=== PATIENT | female | born 1980 | race Caucasian/White ===

== ENCOUNTER 2017-06-15 14:36 | Emergency (ER) | payer BC, OTHER ==
[2017-06-15] MEDS ORDERED: Sodium Chloride 0.9% 1,000 ML IV STA (16:06)
--- NOTE | 2017-06-15 16:26 | ED PDOC ---
HPI: Abdomen Time Seen by Provider: 06/15/17 15:44 Chief Complaint (Nursing): Abdominal Pain Chief Complaint (Provider): Abdominal Pain History Per: Patient History/Exam Limitations: no limitations Onset/Duration Of Symptoms: Days (x2-3) Current Symptoms Are (Timing): Still Present Additional Complaint(s): Dominique Woodard is a 36 year old female with previous medical history of gastritis, Angy's disease, thyroid disease, bipolar disorder and fibromyalgia who presents to the emergency department via EMS with a complaint of sudden onset of dizziness associated with nausea, vomiting, sweating, dehydration, tingling sensation of left arm, fatigue, left-sided back, shoulder , and leg pain and intermittent LUQ abdominal pain ongoing for 2-3 days. Denied any dysuria, urine frequency, or hematuria. Patient stated that she feels "out of it" and was recently given anti-nausea medication from her PCP. LMP: 06/12/17 PMD: Johnathan Smallwood MD Past Medical History Reviewed: Historical Data, Nursing Documentation, Vital Signs Vital Signs: Last Vital Signs Temp 98.1 F 06/15/17 15:23 Pulse 84 06/15/17 15:23 Resp 16 06/15/17 15:23 BP 132/89 06/15/17 15:23 Pulse Ox 99 06/15/17 20:15 - Medical History PMH: Anxiety, Back Problems (herniated discs), Bipolar Disorder, Angy's Syndrome, Fibromyalgia, Gastritis, Hyperthyroidism, Hypothyroidism, Kidney Stones, Migraine, Sleep Apnea Denies: HIV, Chronic Kidney Disease - Surgical History Surgical History: Cholecystectomy - Family History Family History: States: Unknown Family Hx (patient states she is adopted) - Social History Current smoker - smoking cessation education provided: No Alcohol: < 2 Drinks/Day Drugs: Denies - Home Medications Home Medications: Ambulatory Orders Medication Instructions Recorded Alprazolam [Xanax] 0.5 mg PO DAILY PRN 07/18/16 Hydrocortisone [Cortef] 5 mg PO TID 07/18/16 Lamotrigine [Lamictal] 100 mg PO HS 07/18/16 Levothyroxine [Synthroid] 1 tab PO DAILY 07/18/16 Omeprazole 1 cap PO DAILY 07/18/16 Oxycodone HCl [Roxicodone] 5 mg PO Q4 PRN 07/18/16 metFORMIN [glucOPHAGE] 500 mg PO BID 07/18/16 tiZANidine [Zanaflex] 4 mg PO TID PRN 07/18/16 Nitrofurantoin Macrocrystals 100 mg PO BID #14 cap 10/10/16 [Macrobid] Naloxegol Oxalate [Movantik] 25 mg PO DAILY #30 tablet 06/15/17 Polyethylene Glycol 3350 [Miralax] 1 packet PO DAILY #30 packet 06/15/17 - Allergies Allergies/Adverse Reactions: Allergies Allergy/AdvReac Type Severity Reaction Status Date / Time nut - unspecified Allergy RASH Verified 07/18/16 16:10 Review of Systems ROS Statement: Except As Marked, All Systems Reviewed And Found Negative Constitutional: Positive for: Sweats, Other (dehydration and fatigue) Gastrointestinal: Positive for: Nausea, Vomiting, Abdominal Pain (LLQ) Genitourinary Female: Negative for: Dysuria, Frequency, Hematuria Musculoskeletal: Positive for: Shoulder Pain (left), Back Pain (left sided), Leg Pain (left) Neurological: Positive for: Dizziness, Other (tingling of left arm) Physical Exam - Reviewed Nursing Documentation Reviewed: Yes Vital Signs Reviewed: Yes - Physical Exam Appears: Positive for: Well, Non-toxic, No Acute Distress Head Exam: Positive for: ATRAUMATIC, NORMAL INSPECTION, NORMOCEPHALIC Neck: Positive for: Normal, Painless ROM, Supple Cardiovascular/Chest: Positive for: Regular Rate, Rhythm Respiratory: Positive for: Normal Breath Sounds. Negative for: Crackles, Rales , Rhonchi, Wheezing Gastrointestinal/Abdominal: Positive for: Tenderness (LUQ) Back: Positive for: L CVA Tenderness. Negative for: Normal Inspection, R CVA Tenderness Extremity: Positive for: Normal ROM, Capillary Refill (mild 2+). 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 There is diffuse increased echogenicity of the liver parenchyma. No mass. No intrahepatic bile duct dilatation. GALLBLADDER: Surgically absent. COMMON BILE DUCT: Measures 4.4 mm. No stones. No dilatation. PANCREAS: Obscured by bowel gas. RIGHT KIDNEY: Measures 13.6 cm in length. Normal echogenicity. No calculus, mass, or hydronephrosis. AORTA: No aneurysmal dilatation. IVC: Unremarkable. OTHER FINDINGS: None . IMPRESSION: Limited examination due to patient body habitus and bowel gas. The pancreas is not visualized with Hepatic steatosis. Time: 1853 US lower extremities FINDINGS: COMMON FEMORAL VEIN: Right CFV: Unremarkable. Left CFV: Unremarkable. SUPERFICIAL FEMORAL VEIN: Right SFV: Unremarkable. Left SFV: Unremarkable. POPLITEAL VEIN: Right Popliteal: Unremarkable. Left Popliteal: Unremarkable. POSTERIOR TIBIAL VEIN: Right PTV: Unremarkable. Left PTV: Unremarkable. OTHER FINDINGS: None. IMPRESSION: No evidence of deep venous thrombosis. Time: 2004 CT ABD/Pelvis FINDINGS: Artifacts: Streak artifact degrades image quality. Lower thorax: Heart size is normal. There is minimal atelectasis and scarring at the lung bases. ABDOMEN: Liver: There is fatty infiltration of the liver. Gallbladder and bile ducts: Gallbladder is surgically absent. Common bile duct is unremarkable. Pancreas: Pancreas is mildly atrophic. Spleen: Spleen is unremarkable. There are accessory splenules in the left upper quadrant. Adrenals: unremarkable Kidneys and ureters: unremarkable Stomach and bowel: Stomach is partially distended. Rotation is normal. There is no obstruction. Terminal ileum is unremarkable. Visualized portion the appendix is unremarkable. There is fatty infiltration of the ileocecal valve.Colon is incompletely distended which limits evaluation. Appendix: See above. PELVIS: Bladder: Bladder is almost completely empty. Reproductive: Uterus and adnexal structures are unremarkable. ABDOMEN and PELVIS: Intraperitoneal space: There is no free air or free fluid. Bones/joints: There is minimal degenerative osseous change. Soft tissues: There is a small fat containing umbilical hernia. Vasculature: Vascular structures are unremarkable. Lymph nodes: There is no pathologic adenopathy. IMPRESSION: Prior cholecystectomy; fatty liver, no acute solid visceral or bowel abnormality. Scribe Attestation: Documented by Barbara Hoffmann, acting as a scribe for Ladi Levin MD. Provider Scribe Attestation: All medical record entries made by the Scribe were at my direction and personally dictated by me. I have reviewed the chart and agree that the record accurately reflects my personal performance of the history, physical exam, medical decision making, and the department course for this patient. I have also personally directed, reviewed, and agree with the discharge instructions and disposition. 8.15pm - labs, US, duplex and CT-scan all unrevealing. Patient has appointment for EDG in 1-2 weeks in preparation for bariatric surgery. In passing, patient mentions need for dietary help and admits to poor choice of food intake. She also feels in retrospect that part of her bowel problems may be due to the opioids which she takes regularly. She is open to probiotics (which she states she is unfamiliar with) and to OIC agents (which she states has not been prescribed). Disposition - Clinical Impression Clinical Impression: Abdominal pain - Patient ED Disposition Is Patient to be Admitted: No Doctor Will See Patient In The: Office Counseled Patient/Family Regarding: Diagnosis, Need For Followup, Rx Given - Disposition Referrals: Dheeraj Bain [Outside] Disposition: Routine/Home Disposition Time: 20:39 Condition: STABLE Prescriptions: Naloxegol Oxalate [Movantik] 25 mg PO DAILY #30 tablet Polyethylene Glycol 3350 [Miralax] 1 packet PO DAILY #30 packet Instructions: Acute Abdominal Pain (ED), High Fiber Diet (ED) Forms: Dheeraj Mata (Portuguese) - POA Present On Arrival: None
[2017-06-15] MEDS ORDERED: Iohexol 240 (50 ml) PO ONE (16:46)
[2017-06-15] MEDS ORDERED: Iohexol 240 (50 ml) ONE (16:49)
[2017-06-15 17:00] LABS: BASO # 0.1 K/uL (0.0-0.2); BASO % 0.8 % (0.0-2.0); EOS # 0.2 K/uL (0.0-0.7); EOS % 1.6 % (0.0-4.0); LYMPH # 2.5 K/uL (1.0-4.3); LYMPH % 26.6 % (20.0-40.0); MEAN CELL VOLUME 83.1 fl (81.0-99.0); MEAN CORPUSCULAR HEMOGLOBIN 26.5 pg (27.0-31.0); MEAN CORPUSCULAR HGB CONC 31.9 g/dL (33.0-37.0); MEAN PLATELET VOLUME 8.2 fl (7.2-11.7); MONO # 0.6 K/uL (0.0-0.8); MONO % 6.7 % (0.0-10.0); NEUT % 64.3 % (50.0-75.0); RED CELL DISTRIBUTION WIDTH 15.7 % (11.5-14.5); WHITE BLOOD COUNT 9.4 K/uL (4.8-10.8)
[2017-06-15 17:23] LABS: CHLORIDE 105 mmol/L (98-107); POTASSIUM 4.2 MMOL/L (3.6-5.0); SODIUM 140 mmol/l (132-148)
[2017-06-15 17:25] LABS: AST/SGOT 107 U/L (14-36); BILIRUBIN,TOTAL 0.5 mg/dl (0.2-1.3); CARBON DIOXIDE 26 mmol/L (22-30); GFR AFRICAN-AMERICAN > 60
[2017-06-15 17:26] LABS: ALB/GLOB RATIO 1.1 (1.0-2.1); ALKALINE PHOSPHATASE 84 U/L (38-126); ALT/SGPT 98 U/L (9-52); BLOOD UREA NITROGEN 13 mg/dl (7-17); CALCIUM 9.2 mg/dL (8.4-10.2); GLUCOSE,RANDOM 114 mg/dL (65-105); LIPASE 37 U/L (23-300); TOTAL PROTEIN 7.3 G/DL (6.3-8.2)
--- NOTE | 2017-06-15 18:40 | US ---
HISTORY: Left upper quadrant pain COMPARISON: CT abdomen and pelvis from 2015 TECHNIQUE: Grayscale imaging was performed. Examination is technically limited due to patient body habitus FINDINGS: LIVER: Measures 13.6 cm in length. There is diffuse increased echogenicity of the liver parenchyma. No mass. No intrahepatic bile duct dilatation. GALLBLADDER: Surgically absent. COMMON BILE DUCT: Measures 4.4 mm. No stones. No dilatation. PANCREAS: Obscured by bowel gas. RIGHT KIDNEY: Measures 13.6 cm in length. Normal echogenicity. No calculus, mass, or hydronephrosis. AORTA: No aneurysmal dilatation. IVC: Unremarkable. OTHER FINDINGS: None . IMPRESSION: Limited examination due to patient body habitus and bowel gas. The pancreas is not visualized with Hepatic steatosis.
--- NOTE | 2017-06-15 18:55 | US ---
PROCEDURE: Bilateral lower extremity venous duplex Doppler. HISTORY: calf pain COMPARISON: None available. TECHNIQUE: Bilateral common femoral, superficial femoral, popliteal and posterior tibial veins were evaluated. Flow was assessed with color Doppler, compressibility, assessment of phasic flow and augmentation response. FINDINGS: COMMON FEMORAL VEIN: Right CFV: Unremarkable. Left CFV: Unremarkable. SUPERFICIAL FEMORAL VEIN: Right SFV: Unremarkable. Left SFV: Unremarkable. POPLITEAL VEIN: Right Popliteal: Unremarkable. Left Popliteal: Unremarkable. POSTERIOR TIBIAL VEIN: Right PTV: Unremarkable. Left PTV: Unremarkable. OTHER FINDINGS: None. IMPRESSION: No evidence of deep venous thrombosis.
[2017-06-15] MEDS ORDERED: Sodium Chloride 0.9% 50 ML IV ONE (18:59)
[2017-06-15] MEDS ORDERED: Iohexol 300 100 ML IJ ONE (18:59)
[2017-06-15 19:18] LABS: RBC URINE 4 /hpf (0-3); URINE BACTERIA OCC (<OCC); URINE BILIRUBIN NEGATIVE (NEGATIVE); URINE BLOOD MODERATE (NEGATIVE); URINE COLOR YELLOW (YELLOW); URINE GLUCOSE (UA) NEG (Normal); URINE KETONE NEGATIVE (NEGATIVE); URINE LEUKOCYTE ESTERASE LARGE Leu/uL (Negative); URINE PROTEIN NEGATIVE (NEGATIVE); URINE UROBILINOGEN 0.2-1.0 mg/dL (0.2-1.0); WBC URINE 26 /hpf (0-5)
--- NOTE | 2017-06-15 20:05 | CT ---
EXAM: CT Abdomen and Pelvis With Intravenous Contrast CLINICAL HISTORY: 36 years old, female; Pain; Abdominal pain; Generalized; Prior surgery; Surgery date: 6+ months; Surgery type: Gb reomved; Additional info: Luq pain, nausea, dizziness, vomiting for 2-3 days. Sent phy doc. With request TECHNIQUE: Axial computed tomography images of the abdomen and pelvis with intravenous contrast. This CT exam was performed using one or more of the following dose reduction techniques: automated exposure control, adjustment of the mA and/or kV according to patient size, and/or use of iterative reconstruction technique. Coronal and sagittal reformatted images were created and reviewed. CONTRAST: 100 mL of [id number] administered intravenously. EXAM DATE/TIME: 06/15/2017 4:04 PM COMPARISON: CT - ABD PELVIS PO IV CONTRAST 07/18/2016 9:05:20 PM FINDINGS: Artifacts: Streak artifact degrades image quality. Lower thorax: Heart size is normal. There is minimal atelectasis and scarring at the lung bases. ABDOMEN: Liver: There is fatty infiltration of the liver. Gallbladder and bile ducts: Gallbladder is surgically absent. Common bile duct is unremarkable. Pancreas: Pancreas is mildly atrophic. Spleen: Spleen is unremarkable. There are accessory splenules in the left upper quadrant. Adrenals: unremarkable Kidneys and ureters: unremarkable Stomach and bowel: Stomach is partially distended. Rotation is normal. There is no obstruction. Terminal ileum is unremarkable. Visualized portion the appendix is unremarkable. There is fatty infiltration of the ileocecal valve.Colon is incompletely distended which limits evaluation. Appendix: See above. PELVIS: Bladder: Bladder is almost completely empty. Reproductive: Uterus and adnexal structures are unremarkable. ABDOMEN and PELVIS: Intraperitoneal space: There is no free air or free fluid. Bones/joints: There is minimal degenerative osseous change. Soft tissues: There is a small fat containing umbilical hernia. Vasculature: Vascular structures are unremarkable. Lymph nodes: There is no pathologic adenopathy. IMPRESSION: Prior cholecystectomy; fatty liver, no acute solid visceral or bowel abnormality Additional findings as described above.
[2017-06-15 20:52] VITALS: BP 146/85; PULSE 82; RESP 18; O2SAT 98
[2017-06-15 20:54] VITALS: TEMP 98.2
--- NOTE | 2017-06-16 10:28 | CARD ---
APPROVED REPORT EKG Measurement Heart [id number] MI [id number] <Conclusion> Normal sinus rhythm Normal ECG
== END 2017-06-15 20:55 | disposition home or self-care (01) ==
LOC: H.ER 14:36
DX: R10.9 Unspecified abdominal pain (principal); K50.90 Crohn's disease, unspecified, without complications; E03.9 Hypothyroidism, unspecified; E05.90 Thyrotoxicosis, unspecified without thyrotoxic crisis or storm; F31.9 Bipolar disorder, unspecified; F41.9 Anxiety disorder, unspecified; Z79.84 Long term (current) use of oral hypoglycemic drugs; Z90.49 Acquired absence of other specified parts of digestive tract
CPT/HCPCS: 74177; 76705; 80053; 81003; 81025; 83690; 85025; 87086; 87181; 93005; 93970; 96374; 99283; J2405; J7040; Q9966; Q9967

== ENCOUNTER 2017-08-21 23:05 | Emergency (ER) | payer BC ==
[2017-08-21 23:20] VITALS: BP 155/74; PULSE 86; RESP 18; TEMP 98.2; O2SAT 99
[2017-08-22] MEDS ORDERED: Iohexol 240 (50 ml) PO ONE (00:32)
[2017-08-22] MEDS ORDERED: Sodium Chloride 0.9% 1,000 ML IV STA (00:33)
--- NOTE | 2017-08-22 00:35 | ED PDOC ---
HPI: Abdomen Time Seen by Provider: 08/22/17 00:08 Chief Complaint (Nursing): Abdominal Pain Chief Complaint (Provider): abdominal pain History Per: Patient History/Exam Limitations: no limitations Onset/Duration Of Symptoms: Days (1 weeks) Current Symptoms Are (Timing): Still Present Location Of Pain/Discomfort: LUQ, LLQ Quality Of Discomfort: Stabbing, "Pain" Associated Symptoms: Constipation. denies: Fever, Chills, Nausea, Vomiting Additional History Per: Patient Additional Complaint(s): 36 y/o female history of fibromyalgia, bjorn's disease, hypothyroid, chronic back pain presents with left-sided abdominal pain x 1 week. Associated constipation, however patient notes that to be normal for her as she is on oxycodone daily. DEnies fever, chest pain, shortness of breath, palpitations, urinary symptoms. Past Medical History Reviewed: Historical Data, Nursing Documentation, Vital Signs Vital Signs: Last Vital Signs Temp 98.2 F 08/21/17 23:15 Pulse 86 08/21/17 23:15 Resp 18 08/21/17 23:15 BP 155/74 H 08/21/17 23:15 Pulse Ox 99 08/22/17 00:35 - Medical History PMH: Anxiety, Back Problems (herniated discs), Bipolar Disorder, [place]'s Syndrome, Fibromyalgia, Gastritis, Hyperthyroidism, Hypothyroidism, Kidney Stones, Migraine, Sleep Apnea Denies: HIV, Chronic Kidney Disease - Surgical History Surgical History: Cholecystectomy - Family History Family History: States: Unknown Family Hx (patient states she is adopted) - Home Medications Home Medications: Ambulatory Orders Medication Instructions Recorded Alprazolam [Xanax] 0.5 mg PO DAILY PRN 07/18/16 Hydrocortisone [Cortef] 5 mg PO TID 07/18/16 Lamotrigine [Lamictal] 100 mg PO HS 07/18/16 Levothyroxine [Synthroid] 1 tab PO DAILY 07/18/16 Omeprazole 1 cap PO DAILY 07/18/16 Oxycodone HCl [Roxicodone] 5 mg PO Q4 PRN 07/18/16 metFORMIN [glucOPHAGE] 500 mg PO BID 07/18/16 tiZANidine [Zanaflex] 4 mg PO TID PRN 07/18/16 Nitrofurantoin Macrocrystals 100 mg PO BID #14 cap 10/10/16 [Macrobid] Naloxegol Oxalate [Movantik] 25 mg PO DAILY #30 tablet 06/15/17 Polyethylene Glycol 3350 [Miralax] 1 packet PO DAILY #30 packet 06/15/17 Docusate [Colace] 100 mg PO BID PRN #30 cap 08/22/17 Esomeprazole Magnesium [Nexium] 40 mg PO DAILY #10 capsule. 08/22/17 Nitrofurantoin Macrocrystals 100 mg PO BID #14 cap 08/22/17 [Macrobid] - Allergies Allergies/Adverse Reactions: Allergies Allergy/AdvReac Type Severity Reaction Status Date / Time nut - unspecified Allergy RASH Verified 08/21/17 23:15 Review of Systems ROS Statement: Except As Marked, All Systems Reviewed And Found Negative Gastrointestinal: Positive for: Abdominal Pain Physical Exam - Reviewed Nursing Documentation Reviewed: Yes Vital Signs Reviewed: Yes - Physical Exam Appears: Positive for: Well, Non-toxic, No Acute Distress Head Exam: Positive for: ATRAUMATIC, NORMAL INSPECTION, NORMOCEPHALIC Skin: Positive for: Normal Color Eye Exam: Positive for: Normal appearance ENT: Positive for: Normal ENT Inspection Cardiovascular/Chest: Positive for: Regular Rate, Rhythm Respiratory: Positive for: Normal Breath Sounds Gastrointestinal/Abdominal: Positive for: Bowel Sounds, Soft, Tenderness (LUQ, LLQ) Back: Positive for: Normal Inspection Extremity: Positive for: Normal ROM Neurologic/Psych: Positive for: Alert, Oriented - Laboratory Results Result Diagrams: 08/22/17 00:43 08/22/17 00:43 - ECG O2 Sat by Pulse Oximetry: 99 - Progress ED Course And Treament: labs, urine, CT abd/pelvis, IV fluids, IV zofran, IV pepcid, IV toradol EXAM: CT Abdomen and Pelvis With Intravenous Contrast EXAM DATE/TIME: 08/22/2017 12:32 AM CLINICAL HISTORY: 36 years old, female; Pain; Abdominal pain; Localized; Left; Prior surgery; Surgery date: 6+ months; Surgery type: Choleycystectomy; Additional info: Left-sided abd pain TECHNIQUE: Axial computed tomography images of the abdomen and pelvis with intravenous contrast. All CT scans at this facility use one or more dose reduction techniques, viz.: automated exposure control; ma/kV adjustment per patient size (including targeted exams where dose is matched to indication; i.e. head); or iterative reconstruction technique. Coronal and sagittal reformatted images were created and reviewed. CONTRAST: 95 mL of [id number] administered intravenously. COMPARISON: Prior CT abdomen and pelvis of 06/15/2017 FINDINGS: LIMITATIONS: Artifact related to the patient's body habitus. LOWER THORAX: No infiltrate seen in the lung bases. ABDOMEN: LIVER: Fatty infiltration of the liver. Hepatomegaly, with the liver measuring 25 cm in length on the coronal images. GALLBLADDER AND BILE DUCTS: Cholecystectomy clips. PANCREAS: Pancreas appears low in density, most likely secondary to fatty replacement. No CT evidence of acute pancreatitis. SPLEEN: No acute abnormality of the spleen identified. ADRENALS: No acute abnormality of the adrenal glands identified. KIDNEYS AND URETERS: No acute abnormality of the kidneys identified. No evidence of significant hydrouereteronephrosis. STOMACH AND BOWEL: Cecum is midline in location, a normal variant. No evidence of cecal volvulus. Otherwise, no significant abnormality of the bowel is identified. No evidence of bowel obstruction. APPENDIX: Appendix is seen, and is within normal limits in appearance. PELVIS: BLADDER: No acute abnormality of the bladder identified. REPRODUCTIVE:No acute abnormality of the reproductive organs is seen. No acute abnormality of the uterus identified. No evidence of large adnexal masses. ABDOMEN and PELVIS: INTRAPERITONEAL SPACE: No evidence of free intraperitoneal air or fluid. BONES/JOINTS: No acute fractures or other acute bony abnormality noted. SOFT TISSUES: No acute abnormality of the visualized soft tissues is seen. VASCULATURE: No evidence of abdominal aortic aneurysm. No evidence of periaortic hemorrhage. LYMPH NODES: No evidence of diffuse lymphadenopathy. IMPRESSION: - No evidence of significant acute process. No definite cause for pain identified. - See above for remaining findings. Patient educated on findings, discharged with rx macrobid, nexium, colace. Advised fluids, high fiber diet. Follow up PMD/GI. REturn to ED for worsening/concerning symptoms Disposition - Clinical Impression Clinical Impression: UTI (urinary tract infection), Abdominal discomfort - Patient ED Disposition Is Patient to be Admitted: No Counseled Patient/Family Regarding: Studies Performed, Diagnosis, Need For Followup, Rx Given - Disposition Referrals: Rolando Valerio MD, PhD [Staff Provider] - Disposition: Routine/Home Disposition Time: 05:06 Condition: IMPROVED Prescriptions: Docusate [Colace] 100 mg PO BID PRN #30 cap PRN Reason: Constipation Esomeprazole Magnesium [Nexium] 40 mg PO DAILY #10 capsule. Nitrofurantoin Macrocrystals [Macrobid] 100 mg PO BID #14 cap Instructions: Abdominal Pain (ED), Urinary Tract Infection in Women (ED)
[2017-08-22 00:46] LABS: BASO # 0.1 K/uL (0.0-0.2); BASO % 1.1 % (0.0-2.0); EOS # 0.3 K/uL (0.0-0.7); EOS % 2.7 % (0.0-4.0); HEMATOCRIT 36.8 % (34.0-47.0); LYMPH # 2.8 K/uL (1.0-4.3); MEAN CELL VOLUME 82.9 fl (81.0-99.0); MEAN CORPUSCULAR HEMOGLOBIN 26.6 pg (27.0-31.0); MEAN CORPUSCULAR HGB CONC 32.1 g/dL (33.0-37.0); MEAN PLATELET VOLUME 7.9 fl (7.2-11.7); MONO # 0.8 K/uL (0.0-0.8); MONO % 7.3 % (0.0-10.0); NEUT # 6.8 K/uL (1.8-7.0); NEUT % 62.9 % (50.0-75.0); NRBC % 0.1 % (0.0-0.0); RED CELL DISTRIBUTION WIDTH 15.6 % (11.5-14.5); WHITE BLOOD COUNT 10.8 K/uL (4.8-10.8)
[2017-08-22 00:56] LABS: ALB/GLOB RATIO 1.1 (1.0-2.1); ALKALINE PHOSPHATASE 68 U/L (38-126); ALT/SGPT 102 U/L (9-52); AST/SGOT 96 U/L (14-36); BILIRUBIN,TOTAL 0.4 mg/dl (0.2-1.3); BLOOD UREA NITROGEN 9 mg/dl (7-17); CALCIUM 8.8 mg/dL (8.4-10.2); CARBON DIOXIDE 27 mmol/L (22-30); CHLORIDE 103 mmol/L (98-107); GFR AFRICAN-AMERICAN > 60; GLUCOSE,RANDOM 125 mg/dL (65-105); LIPASE 41 U/L (23-300); POTASSIUM 4.6 MMOL/L (3.6-5.0); SODIUM 141 mmol/l (132-148); TOTAL PROTEIN 7.2 G/DL (6.3-8.2)
[2017-08-22] MEDS ORDERED: Iohexol 240 (50 ml) ONE (01:21)
[2017-08-22 01:48] LABS: RBC URINE 2 /hpf (0-3); URINE BACTERIA OCC (<OCC); URINE BILIRUBIN NEGATIVE (NEGATIVE); URINE BLOOD NEGATIVE (NEGATIVE); URINE COLOR YELLOW (YELLOW); URINE GLUCOSE (UA) NEG (Normal); URINE KETONE NEGATIVE (NEGATIVE); URINE LEUKOCYTE ESTERASE MOD Leu/uL (Negative); URINE PROTEIN NEGATIVE (NEGATIVE); URINE UROBILINOGEN 0.2-1.0 mg/dL (0.2-1.0); WBC URINE 13 /hpf (0-5)
[2017-08-22] MEDS ORDERED: Iohexol 300 100 ML IJ ONE (03:38)
[2017-08-22] MEDS ORDERED: Sodium Chloride 0.9% 50 ML IV ONE (03:38)
--- NOTE | 2017-08-22 04:42 | CT ---
EXAM: CT Abdomen and Pelvis With Intravenous Contrast EXAM DATE/TIME: 08/22/2017 12:32 AM CLINICAL HISTORY: 36 years old, female; Pain; Abdominal pain; Localized; Left; Prior surgery; Surgery date: 6+ months; Surgery type: Choleycystectomy; Additional info: Left-sided abd pain TECHNIQUE: Axial computed tomography images of the abdomen and pelvis with intravenous contrast. All CT scans at this facility use one or more dose reduction techniques, viz.: automated exposure control; ma/kV adjustment per patient size (including targeted exams where dose is matched to indication; i.e. head); or iterative reconstruction technique. Coronal and sagittal reformatted images were created and reviewed. CONTRAST: 95 mL of [id number] administered intravenously. COMPARISON: Prior CT abdomen and pelvis of 06/15/2017 FINDINGS: LIMITATIONS: Artifact related to the patient's body habitus. LOWER THORAX: No infiltrate seen in the lung bases. ABDOMEN: LIVER: Fatty infiltration of the liver. Hepatomegaly, with the liver measuring 25 cm in length on the coronal images. GALLBLADDER AND BILE DUCTS: Cholecystectomy clips. PANCREAS: Pancreas appears low in density, most likely secondary to fatty replacement. No CT evidence of acute pancreatitis. SPLEEN: No acute abnormality of the spleen identified. ADRENALS: No acute abnormality of the adrenal glands identified. KIDNEYS AND URETERS: No acute abnormality of the kidneys identified. No evidence of significant hydrouereteronephrosis. STOMACH AND BOWEL: Cecum is midline in location, a normal variant. No evidence of cecal volvulus. Otherwise, no significant abnormality of the bowel is identified. No evidence of bowel obstruction. APPENDIX: Appendix is seen, and is within normal limits in appearance. PELVIS: BLADDER: No acute abnormality of the bladder identified. REPRODUCTIVE:No acute abnormality of the reproductive organs is seen. No acute abnormality of the uterus identified. No evidence of large adnexal masses. ABDOMEN and PELVIS: INTRAPERITONEAL SPACE: No evidence of free intraperitoneal air or fluid. BONES/JOINTS: No acute fractures or other acute bony abnormality noted. SOFT TISSUES: No acute abnormality of the visualized soft tissues is seen. VASCULATURE: No evidence of abdominal aortic aneurysm. No evidence of periaortic hemorrhage. LYMPH NODES: No evidence of diffuse lymphadenopathy. IMPRESSION: - No evidence of significant acute process. No definite cause for pain identified. - See above for remaining findings.
== END 2017-08-22 05:37 | disposition home or self-care (01) ==
LOC: H.ER 23:05
DX: N39.0 Urinary tract infection, site not specified (principal); R10.9 Unspecified abdominal pain
CPT/HCPCS: 74177; 80053; 81003; 81025; 83690; 85025; 96361; 96374; 96375; 99281; J1885; J2405; J7040; Q9966; Q9967

== ENCOUNTER 2017-08-22 23:19 | Emergency (ER) | payer BC ==
[2017-08-22 23:28] VITALS: BP 143/81; PULSE 77; RESP 16; TEMP 98; O2SAT 96
[2017-08-22] MEDS ORDERED: Sodium Chloride 0.9% 1,000 ML IV STA (23:37)
[2017-08-23 00:09] LABS: BASO # 0.1 K/uL (0.0-0.2); BASO % 0.7 % (0.0-2.0); EOS # 0.2 K/uL (0.0-0.7); EOS % 2.1 % (0.0-4.0); HEMATOCRIT 37.1 % (34.0-47.0); LYMPH # 2.1 K/uL (1.0-4.3); LYMPH % 21.2 % (20.0-40.0); MEAN CELL VOLUME 82.6 fl (81.0-99.0); MEAN CORPUSCULAR HEMOGLOBIN 26.4 pg (27.0-31.0); MEAN CORPUSCULAR HGB CONC 31.9 g/dL (33.0-37.0); MEAN PLATELET VOLUME 8.1 fl (7.2-11.7); MONO # 0.6 K/uL (0.0-0.8); RED CELL DISTRIBUTION WIDTH 15.6 % (11.5-14.5); WHITE BLOOD COUNT 9.9 K/uL (4.8-10.8)
--- NOTE | 2017-08-23 00:12 | ED PDOC ---
HPI: Abdomen Time Seen by Provider: 08/22/17 23:30 Chief Complaint (Nursing): Abdominal Pain Chief Complaint (Provider): Abdominal pain, headache History Per: Patient History/Exam Limitations: no limitations Onset/Duration Of Symptoms: Mins Outside of [place] travel?: No Current Symptoms Are (Timing): Still Present Context: Food Location Of Pain/Discomfort: Diffuse Associated Symptoms: Vomiting, Diarrhea Exacerbating Factors: Food Additional History Per: Patient Additional Complaint(s): The patient is a 36yo female, presents to the ED for evaluation of abdominal pain with associated nausea, vomiting and diarrhea. The patient was seen in this facility yesterday for similar symptoms and was discharged home after patient reported feeling better. She states today, she went to a [employer] show and had pizza after which she had 3 episodes of watery diarrhea and 2 episodes of non-bloody, non-bilious vomiting. She reports she has only been able to drink water and feels as if the pizza caused her symptoms. She also reports an associated "pounding" headache. She denies any other medical complaints. Abnormal Vaginal Bleeding: No Past Medical History Reviewed: Historical Data, Nursing Documentation, Vital Signs Vital Signs: Last Vital Signs Temp 98 F 08/22/17 23:24 Pulse 77 08/22/17 23:24 Resp 16 08/22/17 23:24 BP 143/81 08/22/17 23:24 Pulse Ox 96 08/23/17 01:57 - Medical History PMH: Anxiety, Back Problems (herniated discs), Bipolar Disorder, [place]'s Syndrome, Fibromyalgia, Gastritis, Hyperthyroidism, Hypothyroidism, Kidney Stones, Migraine, Sleep Apnea Denies: HIV, Chronic Kidney Disease - Surgical History Surgical History: Cholecystectomy - Family History Family History: States: Unknown Family Hx (patient states she is adopted) - Home Medications Home Medications: Ambulatory Orders Medication Instructions Recorded Alprazolam [Xanax] 0.5 mg PO DAILY PRN 07/18/16 Hydrocortisone [Cortef] 5 mg PO TID 07/18/16 Lamotrigine [Lamictal] 100 mg PO HS 07/18/16 Levothyroxine [Synthroid] 1 tab PO DAILY 07/18/16 Omeprazole 1 cap PO DAILY 07/18/16 Oxycodone HCl [Roxicodone] 5 mg PO Q4 PRN 08/30/16 metFORMIN [glucOPHAGE] 500 mg PO BID 07/18/16 tiZANidine [Zanaflex] 4 mg PO TID PRN 07/18/16 Nitrofurantoin Macrocrystals 100 mg PO BID #14 cap 10/10/16 [Macrobid] Naloxegol Oxalate [Movantik] 25 mg PO DAILY #30 tablet 06/15/17 Polyethylene Glycol 3350 [Miralax] 1 packet PO DAILY #30 packet 06/15/17 Docusate [Colace] 100 mg PO BID PRN #30 cap 08/22/17 Esomeprazole Magnesium [Nexium] 40 mg PO DAILY #10 capsule. 08/22/17 Nitrofurantoin Macrocrystals 100 mg PO BID #14 cap 08/22/17 [Macrobid] Ondansetron [Zofran] 4 mg PO Q8H #12 tab 08/23/17 - Allergies Allergies/Adverse Reactions: Allergies Allergy/AdvReac Type Severity Reaction Status Date / Time nut - unspecified Allergy RASH Verified 08/21/17 23:15 Review of Systems ROS Statement: Except As Marked, All Systems Reviewed And Found Negative Gastrointestinal: Positive for: Nausea, Vomiting, Abdominal Pain, Diarrhea Neurological: Positive for: Headache Physical Exam - Reviewed Nursing Documentation Reviewed: Yes Vital Signs Reviewed: Yes - Physical Exam Appears: Positive for: Non-toxic (obese), No Acute Distress Head Exam: Positive for: ATRAUMATIC, NORMAL INSPECTION, NORMOCEPHALIC Skin: Positive for: Warm, Dry Neck: Positive for: Supple Cardiovascular/Chest: Positive for: Regular Rate, Rhythm Respiratory: Positive for: Normal Breath Sounds. Negative for: Wheezing, Respiratory Distress Gastrointestinal/Abdominal: Positive for: Soft, Tenderness (diffuse), Other ( patient actively retching). Negative for: Guarding, Rebound Neurologic/Psych: Positive for: Alert, Oriented. Negative for: Motor/Sensory Deficits - Laboratory Results Result Diagrams: 08/23/17 00:07 08/23/17 00:07 - ECG O2 Sat by Pulse Oximetry: 96 (RA) Pulse Ox Interpretation: Normal Medical Decision Making Medical Decision Making: Time: 2336 Impression: Gastroenteritis Plan: -- Labs -- Toradol 30 mg IVP -- Reglan 10 mg Ivp -- IV Fluids Reassess Time: 0127 Patient reports she feels much better, and is able to tolerate PO intake. Patient informed to follow up with her PCP in 1-2 days and informed to return to ED if symptoms worsen or new symptoms arise. Patient stable for discharge home. Scribe Attestation: Documented by Ramonita Ibarra acting as a scribe for Hipolito Medina MD. Provider Attestation: All medical record entries made by the Scribe were at my direction and personally dictated by me. I have reviewed the chart and agree that the record accurately reflects my personal performance of the history, physical exam, medical decision making, and the department course for this patient. I have also personally directed, reviewed, and agree with the discharge instructions and disposition. Disposition - Clinical Impression Clinical Impression: Gastroenteritis - Patient ED Disposition Is Patient to be Admitted: No Counseled Patient/Family Regarding: Diagnosis, Need For Followup - Disposition Referrals: [facility] [Outside] Disposition: Routine/Home Disposition Time: 01:27 Condition: STABLE Prescriptions: Ondansetron [Zofran] 4 mg PO Q8H #12 tab Instructions: Dehydration (DC), Gastroenteritis (ED) Forms: Outline ([place]an)
[2017-08-23 00:16] LABS: RBC URINE 4 /hpf (0-3); URINE BACTERIA OCC (<OCC); URINE BILIRUBIN NEGATIVE (NEGATIVE); URINE BLOOD MODERATE (NEGATIVE); URINE COLOR STRAW (YELLOW); URINE GLUCOSE (UA) NEG (Normal); URINE KETONE NEGATIVE (NEGATIVE); URINE LEUKOCYTE ESTERASE SMALL Leu/uL (Negative); URINE PROTEIN NEGATIVE (NEGATIVE); URINE UROBILINOGEN 0.2-1.0 mg/dL (0.2-1.0); WBC URINE 4 /hpf (0-5)
[2017-08-23 00:19] LABS: ALB/GLOB RATIO 1.1 (1.0-2.1); ALKALINE PHOSPHATASE 81 U/L (38-126); ALT/SGPT 106 U/L (9-52); AST/SGOT 91 U/L (14-36); BILIRUBIN,TOTAL 0.5 mg/dl (0.2-1.3); BLOOD UREA NITROGEN 10 mg/dl (7-17); CALCIUM 9.6 mg/dL (8.4-10.2); CARBON DIOXIDE 25 mmol/L (22-30); CHLORIDE 102 mmol/L (98-107); GFR AFRICAN-AMERICAN > 60; GLUCOSE,RANDOM 181 mg/dL (65-105); LIPASE 48 U/L (23-300); POTASSIUM 3.7 MMOL/L (3.6-5.0); SODIUM 142 mmol/l (132-148); TOTAL PROTEIN 7.2 G/DL (6.3-8.2)
== END 2017-08-23 01:54 | disposition home or self-care (01) ==
LOC: H.ER 23:19
DX: K52.9 Noninfective gastroenteritis and colitis, unspecified (principal); R11.10 Vomiting, unspecified
CPT/HCPCS: 80053; 81003; 81025; 83690; 85025; 96374; 96375; 99283; J1885; J2765; J7040

== ENCOUNTER 2017-09-05 12:08 | Emergency (ER) | payer BC ==
[2017-09-05 12:13] VITALS: BP 147/75; PULSE 88; RESP 16; TEMP 98.2; O2SAT 96
[2017-09-05] MEDS ORDERED: Sodium Chloride 0.9% 1,000 ML IV STA (12:57)
--- NOTE | 2017-09-05 13:02 | ED PDOC ---
HPI: Abdomen Time Seen by Provider: 09/05/17 12:27 Chief Complaint (Nursing): Abdominal Pain Chief Complaint (Provider): Abdominal pain History Per: Patient Additional Complaint(s): Nausea and dizziness since this morning. Intermittent right abdominal pain for a >1 week, worse this morning. Patient has endoscopy and colonoscopy scheduled tomorrow. Past Medical History Vital Signs: Last Vital Signs Temp 98.2 F 09/05/17 12:11 Pulse 88 09/05/17 12:11 Resp 16 09/05/17 12:11 BP 147/75 09/05/17 12:11 Pulse Ox 96 09/05/17 13:02 - Medical History PMH: Anxiety, Back Problems (herniated discs), Bipolar Disorder, Angy's Syndrome, Fibromyalgia, Gastritis, Hyperthyroidism, Hypothyroidism, Kidney Stones, Migraine, Sleep Apnea Denies: HIV, Chronic Kidney Disease - Surgical History Surgical History: Cholecystectomy - Family History Family History: States: Unknown Family Hx (patient states she is adopted) - Home Medications Home Medications: Ambulatory Orders Medication Instructions Recorded Alprazolam [Xanax] 0.5 mg PO DAILY PRN 07/18/16 Hydrocortisone [Cortef] 5 mg PO TID 07/18/16 Lamotrigine [Lamictal] 100 mg PO HS 07/18/16 Levothyroxine [Synthroid] 1 tab PO DAILY 07/18/16 Omeprazole 1 cap PO DAILY 07/18/16 Oxycodone HCl [Roxicodone] 5 mg PO Q4 PRN 07/18/16 metFORMIN [glucOPHAGE] 500 mg PO BID 07/18/16 tiZANidine [Zanaflex] 4 mg PO TID PRN 07/18/16 Nitrofurantoin Macrocrystals 100 mg PO BID #14 cap 10/10/16 [Macrobid] Naloxegol Oxalate [Movantik] 25 mg PO DAILY #30 tablet 06/15/17 Polyethylene Glycol 3350 [Miralax] 1 packet PO DAILY #30 packet 06/15/17 Docusate [Colace] 100 mg PO BID PRN #30 cap 08/22/17 Esomeprazole Magnesium [Nexium] 40 mg PO DAILY #10 capsule.dr 08/22/17 Nitrofurantoin Macrocrystals 100 mg PO BID #14 cap 08/22/17 [Macrobid] Ondansetron [Zofran] 4 mg PO Q8H #12 tab 08/23/17 Cephalexin [cephalexin] 500 mg PO BID #14 cap 09/05/17 - Allergies Allergies/Adverse Reactions: Allergies Allergy/AdvReac Type Severity Reaction Status Date / Time nut - unspecified Allergy RASH Verified 09/05/17 12:11 - Laboratory Results Result Diagrams: 09/05/17 13:25 09/05/17 13:25 - ECG O2 Sat by Pulse Oximetry: 96 Medical Decision Making Medical Decision Making: Pt tearful, asking for dilaudid for pain. reports no improvement. concern for drug seeking behavior. [place] Database accessed: last filled 90 tabs of Oxycodone 10 mg on 07/27/17 Disposition - Clinical Impression Clinical Impression: UTI (urinary tract infection) - Disposition Referrals: Van Norman MD [Staff Provider] - Condition: STABLE Prescriptions: Cephalexin [cephalexin] 500 mg PO BID #14 cap Instructions: Urinary Tract Infection in Women (ED) Forms: [employer] (Greek)
[2017-09-05] MEDS ORDERED: HYDROmorphone 0.5 mg/0.5 ml ISec IVP STA (13:24)
[2017-09-05] MEDS ORDERED: HYDROmorphone 0.5 mg/0.5 ml ISec ONE (13:31)
[2017-09-05 13:35] LABS: BASO # 0.1 K/uL (0.0-0.2); BASO % 0.7 % (0.0-2.0); EOS # 0.1 K/uL (0.0-0.7); EOS % 1.6 % (0.0-4.0); HEMATOCRIT 38.5 % (34.0-47.0); LYMPH # 2.3 K/uL (1.0-4.3); LYMPH % 25.9 % (20.0-40.0); MEAN CELL VOLUME 82.8 fl (81.0-99.0); MEAN CORPUSCULAR HGB CONC 31.4 g/dL (33.0-37.0); MEAN PLATELET VOLUME 8.1 fl (7.2-11.7); MONO # 0.6 K/uL (0.0-0.8); MONO % 7.1 % (0.0-10.0); NEUT # 5.7 K/uL (1.8-7.0); NEUT % 64.7 % (50.0-75.0); RED CELL DISTRIBUTION WIDTH 15.8 % (11.5-14.5); WHITE BLOOD COUNT 8.8 K/uL (4.8-10.8)
[2017-09-05 13:40] LABS: RBC URINE 24 /hpf (0-3); URINE BILIRUBIN NEGATIVE (NEGATIVE); URINE BLOOD MODERATE (NEGATIVE); URINE COLOR YELLOW (YELLOW); URINE GLUCOSE (UA) NEG (Normal); URINE KETONE NEGATIVE (NEGATIVE); URINE LEUKOCYTE ESTERASE MOD Leu/uL (Negative); URINE PROTEIN NEGATIVE (NEGATIVE); URINE UROBILINOGEN 0.2-1.0 mg/dL (0.2-1.0); WBC URINE 29 /hpf (0-5)
[2017-09-05 13:41] LABS: URINE BACTERIA MOD (<OCC)
[2017-09-05 13:57] LABS: ALB/GLOB RATIO 1.1 (1.0-2.1); ALKALINE PHOSPHATASE 76 U/L (38-126); ALT/SGPT 85 U/L (9-52); AST/SGOT 80 U/L (14-36); BILIRUBIN,TOTAL 0.4 mg/dl (0.2-1.3); BLOOD UREA NITROGEN 12 mg/dl (7-17); CALCIUM 9.1 mg/dL (8.4-10.2); CARBON DIOXIDE 24 mmol/L (22-30); CHLORIDE 106 mmol/L (98-107); GFR AFRICAN-AMERICAN > 60; GLUCOSE,RANDOM 125 mg/dL (65-105); POTASSIUM 4.2 MMOL/L (3.6-5.0); SODIUM 140 mmol/l (132-148); TOTAL PROTEIN 7.3 G/DL (6.3-8.2)
[2017-09-05] MEDS ORDERED: cefTRIAXone IV 1 gm in Dextros 50 ML IVPB STA (13:59)
[2017-09-05] MEDS ORDERED: cefTRIAXone IV 1 gm in Dextros 50 ML IVPB ONE (14:16)
[2017-09-05] MEDS ORDERED: Iohexol 240 (50 ml) PO ONE (14:31)
[2017-09-05] MEDS ORDERED: Iohexol 240 (50 ml) ONE (14:43)
[2017-09-05] MEDS ORDERED: Iohexol 300 100 ML IJ ONE (16:27)
[2017-09-05] MEDS ORDERED: Sodium Chloride 0.9% 50 ML IV ONE (16:28)
--- NOTE | 2017-09-05 17:21 | US ---
HISTORY: rlq pain, r/o torsion. LMP: 09/05/2017 COMPARISON: None available. TECHNIQUE: Transvaginal ultrasound examination of the pelvis. FINDINGS: UTERUS: Measures 8 x 3.5 x 4.7 cm. Normal in size and appearance. No fibroid or other mass lesion seen. ENDOMETRIUM: Measures 17 mm in diameter. Unremarkable. CERVIX: There are small cystic lesions seen in the cervix likely represent nabothian cyst. RIGHT OVARY: The right ovary was not visualized LEFT OVARY: The left ovary was not visualized. FREE FLUID: No significant free fluid noted. OTHER FINDINGS: None. IMPRESSION: Limited study due to the question body habitus. The ovaries are not visualized this examination. The possibility of ovarian torsion cannot be totally excluded. No evidence of acute pathology or suspicious lesion in the uterus.
--- NOTE | 2017-09-05 17:58 | CT ---
PROCEDURE: CT Abdomen and Pelvis with contrast HISTORY: abdominal pain rlq and luq COMPARISON: 08/22/2017 TECHNIQUE: Contrast dose: Oral contrast only. Radiation dose: Total exam DLP = 1149.20 mGy-cm. This CT exam was performed using one or more of the following dose reduction techniques: Automated exposure control, adjustment of the mA and/or kV according to patient size, and/or use of iterative reconstruction technique. FINDINGS: LOWER THORAX: Unremarkable. LIVER: Hepatomegaly. Hepatic steatosis. No focal masses. No intrahepatic bile duct dilatation or perihepatic ascites. GALLBLADDER AND BILE DUCTS: Status post cholecystectomy. No abnormality is seen in the gallbladder fossa. PANCREAS: Unremarkable. No gross lesion or ductal dilatation. SPLEEN: Unremarkable. ADRENALS: Unremarkable. No mass. KIDNEYS AND URETERS: Unilateral, right nonobstructing renal calculi. No evidence of hydronephrosis or mass lesion. VASCULATURE: Unremarkable. No aortic aneurysm. BOWEL: Unremarkable. No obstruction. No gross mural thickening. APPENDIX: Normal appendix. PERITONEUM: Unremarkable. No free fluid. No free air. LYMPH NODES: Unremarkable. No enlarged lymph nodes. BLADDER: Unremarkable. REPRODUCTIVE: Unremarkable. BONES: No acute fracture. OTHER FINDINGS: None. IMPRESSION: Nephrolithiasis, small punctate renal calculi without evidence of obstructive uropathy. These are seen in the right kidney only. Unremarkable left kidney. There is artifact related to small does intravenous contrast which was given. Hepatomegaly, hepatic steatosis without focal abnormality.
== END 2017-09-05 20:40 | disposition home or self-care (01) ==
LOC: H.ER 12:08
DX: N39.0 Urinary tract infection, site not specified (principal); Z72.89 Other problems related to lifestyle
CPT/HCPCS: 74177; 76830; 80053; 81003; 81025; 85025; 96365; 96372; 96375; 99283; J0696; J1170; J2405; J7040; Q9966; Q9967

== ENCOUNTER 2017-09-06 02:35 | Emergency (ER) | payer BC ==
[2017-09-06 03:12] VITALS: BP 142/86; PULSE 86; RESP 18; TEMP 98.1; O2SAT 98
[2017-09-06] MEDS ORDERED: Sodium Chloride 0.9% 1,000 ML IV STA (03:42)
--- NOTE | 2017-09-06 03:46 | ED PDOC ---
HPI: Abdomen Time Seen by Provider: 09/06/17 02:44 Chief Complaint (Nursing): Abdominal Pain Chief Complaint (Provider): Abdominal Pain History Per: Patient History/Exam Limitations: no limitations Onset/Duration Of Symptoms: Days (x 1 month) Current Symptoms Are (Timing): Still Present Associated Symptoms: Nausea, Vomiting Additional Complaint(s): Dominique is a 36 y/o female who presents to the ED complaining of worsening nausea, vomiting, and abdominal pain for the past month. This is her fourth visit to the ED this month for the same complaints. Here yesterday and had a normal CT and US, and was discharged home with Alley. States that she hasn't been able to keep anything down, and has endoscopy scheduled here at 7AM so she came to the ED. No fever or diarrhea. Patient reports taking oxycodone QID for 10 years for fibromyalgia. Her PMD recently moved away and she was referred to a new one today, but at the moment has no doctor for pain management. PMD: [facility] Past Medical History Reviewed: Historical Data, Nursing Documentation, Vital Signs Vital Signs: Last Vital Signs Temp 98.1 F 09/06/17 03:08 Pulse 86 09/06/17 03:08 Resp 18 09/06/17 03:08 BP 142/86 09/06/17 03:08 Pulse Ox 98 09/06/17 05:00 - Medical History PMH: Anxiety, Back Problems (herniated discs), Bipolar Disorder, Angy's Syndrome, Fibromyalgia, Gastritis, Hypothyroidism, Kidney Stones, Migraine, Sleep Apnea Denies: HIV, Chronic Kidney Disease Other PMH: PCOS - Surgical History Surgical History: Cholecystectomy - Family History Family History: States: Unknown Family Hx (patient states she is adopted) - Home Medications Home Medications: Ambulatory Orders Medication Instructions Recorded Alprazolam [Xanax] 0.5 mg PO DAILY PRN 07/18/16 Hydrocortisone [Cortef] 5 mg PO TID 07/18/16 Lamotrigine [Lamictal] 100 mg PO HS 07/18/16 Levothyroxine [Synthroid] 1 tab PO DAILY 07/18/16 Omeprazole 1 cap PO DAILY 07/18/16 Oxycodone HCl [Roxicodone] 5 mg PO Q4 PRN 07/18/16 metFORMIN [glucOPHAGE] 500 mg PO BID 07/18/16 tiZANidine [Zanaflex] 4 mg PO TID PRN 07/18/16 Nitrofurantoin Macrocrystals 100 mg PO BID #14 cap 10/10/16 [Macrobid] Naloxegol Oxalate [Movantik] 25 mg PO DAILY #30 tablet 06/15/17 Polyethylene Glycol 3350 [Miralax] 1 packet PO DAILY #30 packet 06/15/17 Docusate [Colace] 100 mg PO BID PRN #30 cap 08/22/17 Esomeprazole Magnesium [Nexium] 40 mg PO DAILY #10 capsule. 08/22/17 Nitrofurantoin Macrocrystals 100 mg PO BID #14 cap 08/22/17 [Macrobid] Ondansetron [Zofran] 4 mg PO Q8H #12 tab 08/23/17 Cephalexin [cephalexin] 500 mg PO BID #14 cap 09/05/17 Metoclopramide HCl [Reglan] 10 mg PO BID PRN #20 tab 09/06/17 - Allergies Allergies/Adverse Reactions: Allergies Allergy/AdvReac Type Severity Reaction Status Date / Time nut - unspecified Allergy RASH Verified 09/06/17 03:12 Review of Systems ROS Statement: Except As Marked, All Systems Reviewed And Found Negative Constitutional: Negative for: Fever Gastrointestinal: Positive for: Nausea, Vomiting, Abdominal Pain. Negative for : Diarrhea Physical Exam - Reviewed Nursing Documentation Reviewed: Yes Vital Signs Reviewed: Yes - Physical Exam Appears: Positive for: Non-toxic (but morbidly obese), No Acute Distress Head Exam: Positive for: ATRAUMATIC, NORMAL INSPECTION, NORMOCEPHALIC Skin: Positive for: Normal Color, Warm, Dry Eye Exam: Positive for: EOMI, Normal appearance, PERRL Neck: Positive for: Normal, Painless ROM, Supple Cardiovascular/Chest: Positive for: Regular Rate, Rhythm. Negative for: Murmur Respiratory: Positive for: Normal Breath Sounds. Negative for: Respiratory Distress Gastrointestinal/Abdominal: Positive for: Soft, Tenderness (to the left upper quadrant) Extremity: Positive for: Normal ROM. Negative for: Pedal Edema, Deformity Neurologic/Psych: Positive for: Alert, Oriented - ECG O2 Sat by Pulse Oximetry: 98 (RA) Pulse Ox Interpretation: Normal Medical Decision Making Medical Decision Making: Records reviewed, patient was seen here and had imaging with the following results: 17:20 ON 09/05/17 US TRANSVAGINAL: FINDINGS: UTERUS: Measures 8 x 3.5 x 4.7 cm. Normal in size and appearance. No fibroid or other mass lesion seen. ENDOMETRIUM: Measures 17 mm in diameter. Unremarkable. CERVIX: There are small cystic lesions seen in the cervix likely represent nabothian cyst. RIGHT OVARY: The right ovary was not visualized LEFT OVARY: The left ovary was not visualized. FREE FLUID: No significant free fluid noted. OTHER FINDINGS: None. IMPRESSION: Limited study due to the question body habitus. The ovaries are not visualized this examination. The possibility of ovarian torsion cannot be totally excluded. No evidence of acute pathology or suspicious lesion in the uterus. 17:56 on 09/05/17 CT ABDOMEN/PELVIS W/ PO & IV CONTRAST: FINDINGS: LOWER THORAX: Unremarkable. LIVER: Hepatomegaly. Hepatic steatosis. No focal masses. No intrahepatic bile duct dilatation or perihepatic ascites. GALLBLADDER AND BILE DUCTS: Status post cholecystectomy. No abnormality is seen in the gallbladder fossa. PANCREAS: Unremarkable. No gross lesion or ductal dilatation. SPLEEN: Unremarkable. ADRENALS: Unremarkable. No mass. KIDNEYS AND URETERS: Unilateral, right nonobstructing renal calculi. No evidence of hydronephrosis or mass lesion. VASCULATURE: Unremarkable. No aortic aneurysm. BOWEL: Unremarkable. No obstruction. No gross mural thickening. APPENDIX: Normal appendix. PERITONEUM: Unremarkable. No free fluid. No free air. LYMPH NODES: Unremarkable. No enlarged lymph nodes. BLADDER: Unremarkable. REPRODUCTIVE: Unremarkable. BONES: No acute fracture. OTHER FINDINGS: None. IMPRESSION: Nephrolithiasis, small punctate renal calculi without evidence of obstructive uropathy. These are seen in the right kidney only. Unremarkable left kidney. There is artifact related to small does intravenous contrast which was given. Hepatomegaly, hepatic steatosis without focal abnormality. Initial Impression: Abdominal pain (chronic per patient), vomiting, and UTI Time: 3:42 Initial Plan: --NS IV 1000 ml at 1000 mls/hr --Reglan 10 mg IV --Pending reevaluation Time: 4:48 --Patient continues to complain of nausea. Concerned that she will vomit the medication she needs to take for endoscopy at 7AM. --Meclizine 50 mg PO --Toradol 30 mg IV Time: 6:15 --Patient reports improvement in symptoms, and is stable for discharge home. --Advised patient to complete scheduled endoscopy. Clinical Impression: Vomiting, dizziness, chronic abdominal pain, opioid dependence Patient will be discharged with Rx for Reglan. Counseling was provided and all questions were answered regarding diagnosis and need for follow up with PCP in 2 -3 days. There is agreement to discharge plan. Return if symptoms persist or worsen. Scribe Attestation: Documented by Jada Jordan, acting as a scribe for Zak Simon MD Provider Scribe Attestation: All medical record entries made by the Scribe were at my direction and personally dictated by me. I have reviewed the chart and agree that the record accurately reflects my personal performance of the history, physical exam, medical decision making, and the department course for this patient. I have also personally directed, reviewed, and agree with the discharge instructions and disposition. Disposition - Clinical Impression Clinical Impression: Vomiting, Dizziness, Opioid dependence, Chronic abdominal pain - Patient ED Disposition Is Patient to be Admitted: No Counseled Patient/Family Regarding: Diagnosis, Need For Followup, Rx Given - Disposition Referrals: [facility] [Outside] Disposition: Routine/Home Disposition Time: 06:15 Condition: GOOD Additional Instructions: Take your medications as instructed. Follow up with your PCP in 2-3 days. Prescriptions: Metoclopramide HCl [Reglan] 10 mg PO BID PRN #20 tab PRN Reason: Nausea/Vomiting Instructions: Acute Nausea and Vomiting (ED), Dizziness (ED)
== END 2017-09-06 06:22 | disposition home or self-care (01) ==
LOC: H.ER 02:35
DX: R11.11 Vomiting without nausea (principal); R42 Dizziness and giddiness; F11.20 Opioid dependence, uncomplicated; R10.9 Unspecified abdominal pain; G89.29 Other chronic pain; Z86.59 Personal history of other mental and behavioral disorders; M79.7 Fibromyalgia; Z87.442 Personal history of urinary calculi; E28.2 Polycystic ovarian syndrome; E24.9 Cushing's syndrome, unspecified
CPT/HCPCS: 96374; 99282; J1885; J2765; J7040

== ENCOUNTER 2017-09-10 14:17 | Emergency (ER) | payer BC ==
--- NOTE | 2017-09-10 15:20 | ED PDOC ---
HPI: Abdomen Time Seen by Provider: 09/10/17 14:35 Chief Complaint (Nursing): Abdominal Pain Chief Complaint (Provider): Abdominal pain History Per: Patient History/Exam Limitations: no limitations Onset/Duration Of Symptoms: Days, Persistent Outside of [place] travel?: No Current Symptoms Are (Timing): Still Present Location Of Pain/Discomfort: Diffuse, LUQ Associated Symptoms: Nausea, Vomiting, Loss Of Appetite Exacerbating Factors: Movement Alleviating Factors: None Additional History Per: Patient Additional Complaint(s): 36yo female with past medical history of angy's disease, fibromyalgia, kidney stones, bipolar disorder, presents to the ED for evaluation of abdominal pain, nausea and vomiting, present intermittently for the past month, and worse with each episode. Patient states this is her 5th visit to the ED regarding such symptoms; also reports she has been following up with Dr. Jiang, has been compliant with prescribed mediations but with no relief. She also states she was scheduled for a colonoscopy and endoscopy, had the endoscopy done and is waiting for results but has not had colonoscopy done as she has not been able to follow the regimen prescribed to her by Dr. Jiang. Patient also states she feels increasingly anxious due to her discomfort and has had suicidal ideation in the past 3-4 days; she denies any suicidal plan or homicidal ideation. Patient states she has taken reglan, omeprazole, zofran for her symptoms with no relief. She offers no other medical complaints. Past Medical History Reviewed: Historical Data, Nursing Documentation, Vital Signs Vital Signs: Last Vital Signs Temp 98.0 F 09/10/17 18:54 Pulse 76 09/10/17 18:54 Resp 18 09/10/17 18:54 BP 125/82 09/10/17 18:54 Pulse Ox 100 09/10/17 20:03 - Medical History PMH: Anxiety, Back Problems (herniated discs), Bipolar Disorder, Angy's Syndrome, Fibromyalgia, Gastritis, Hyperthyroidism, Hypothyroidism, Kidney Stones, Migraine, Sleep Apnea Denies: HIV, Chronic Kidney Disease - Surgical History Surgical History: Cholecystectomy - Family History Family History: States: Unknown Family Hx (patient states she is adopted) - Living Arrangements Living Arrangements: With Friends/Others - Social History Current smoker - smoking cessation education provided: No Alcohol: None Drugs: Denies - Home Medications Home Medications: Ambulatory Orders Medication Instructions Recorded Alprazolam [Xanax] 0.5 mg PO DAILY PRN 07/18/16 Hydrocortisone [Cortef] 5 mg PO TID 07/18/16 Lamotrigine [Lamictal] 100 mg PO HS 07/18/16 Levothyroxine [Synthroid] 1 tab PO DAILY 07/18/16 Omeprazole 1 cap PO DAILY 07/18/16 Oxycodone HCl [Roxicodone] 5 mg PO Q4 PRN 07/18/16 metFORMIN [glucOPHAGE] 500 mg PO BID 07/18/16 tiZANidine [Zanaflex] 4 mg PO TID PRN 07/18/16 Nitrofurantoin Macrocrystals 100 mg PO BID #14 cap 10/10/16 [Macrobid] Naloxegol Oxalate [Movantik] 25 mg PO DAILY #30 tablet 06/15/17 Polyethylene Glycol 3350 [Miralax] 1 packet PO DAILY #30 packet 06/15/17 Docusate [Colace] 100 mg PO BID PRN #30 cap 08/22/17 Esomeprazole Magnesium [Nexium] 40 mg PO DAILY #10 capsule.dr 08/22/17 Nitrofurantoin Macrocrystals 100 mg PO BID #14 cap 08/22/17 [Macrobid] Ondansetron [Zofran] 4 mg PO Q8H #12 tab 08/23/17 Cephalexin [cephalexin] 500 mg PO BID #14 cap 09/05/17 Metoclopramide HCl [Reglan] 10 mg PO BID PRN #20 tab 09/06/17 Dicyclomine [Dicyclomine HCl] 10 mg PO TID PRN #10 cap 09/10/17 - Allergies Allergies/Adverse Reactions: Allergies Allergy/AdvReac Type Severity Reaction Status Date / Time nut - unspecified Allergy RASH Verified 09/10/17 14:57 Review of Systems ROS Statement: Except As Marked, All Systems Reviewed And Found Negative Constitutional: Negative for: Fever, Chills Gastrointestinal: Positive for: Nausea, Vomiting, Abdominal Pain Psych: Positive for: Anxiety, Suicidal ideation Physical Exam - Reviewed Nursing Documentation Reviewed: Yes Vital Signs Reviewed: Yes - Physical Exam Appears: Positive for: Non-toxic, Uncomfortable (tearful upon interview) Head Exam: Positive for: ATRAUMATIC, NORMAL INSPECTION, NORMOCEPHALIC Skin: Positive for: Warm, Dry Eye Exam: Positive for: Normal appearance Neck: Positive for: Supple Cardiovascular/Chest: Positive for: Regular Rate, Rhythm Respiratory: Positive for: Normal Breath Sounds. Negative for: Respiratory Distress Gastrointestinal/Abdominal: Positive for: Soft, Tenderness (diffuse) Neurologic/Psych: Positive for: Alert, Oriented - Laboratory Results Result Diagrams: 09/10/17 15:50 09/10/17 15:50 Medical Decision Making Medical Decision Making: Time: 1535 Impression: Abdominal pain Plan: -- Lipase -- CBC -- CMP -- Zofran 4mg IV -- IV Fluids Reassess Time: [address] Jiang, awaiting call back. Time: [address] Jiang who states the endoscopy indicates gastritis; still pending Sheba Carter. Dr. Jiang additionally reports colonoscopy was not performed as the patient was unable to tolerate prep for the test Crisis consult ordered as patient expressed suicidal ideation. Upon re-assessment, patient tolerating PO intake while in the ER. Time: 170 Patient to be signed out to Dr. Morrell pending crisis evaluation. Scribe Attestation: Documented by Ramonita Ibarra acting as a scribe for Wilman Hummel MD. Provider Attestation: All medical record entries made by the Scribe were at my direction and personally dictated by me. I have reviewed the chart and agree that the record accurately reflects my personal performance of the history, physical exam, medical decision making, and the department course for this patient. I have also personally directed, reviewed, and agree with the discharge instructions and disposition. Disposition - Clinical Impression Clinical Impression: Gastritis, Bipolar disorder, Abdominal pain - Patient ED Disposition Is Patient to be Admitted: Transfer of Care - Disposition Referrals: Apolinar TOWNSEND,MD Shamir [Medical Doctor] - Disposition: Transfer of Care Disposition Time: 16:50 Condition: STABLE Additional Instructions: Followup with psychiatrist/ counselor/ therapist as outpatient. Followup with Dr Jiang for results of endo biopsy. Prescriptions: Dicyclomine [Dicyclomine HCl] 10 mg PO TID PRN #10 cap PRN Reason: Gi Distress Instructions: Bipolar Disorder (ED), Abdominal Pain (ED) Patient Signed Over To: Rolando Morrell III Handoff Comments: crisis evaluation.
[2017-09-10] MEDS ORDERED: Sodium Chloride 0.9% 1,000 ML IV STA (15:35)
[2017-09-10 16:07] LABS: BASO # 0.1 K/uL (0.0-0.2); BASO % 0.8 % (0.0-2.0); EOS # 0.2 K/uL (0.0-0.7); EOS % 2.3 % (0.0-4.0); HEMATOCRIT 35.9 % (34.0-47.0); LYMPH # 2.3 K/uL (1.0-4.3); LYMPH % 24.8 % (20.0-40.0); MEAN CELL VOLUME 81.9 fl (81.0-99.0); MEAN CORPUSCULAR HEMOGLOBIN 26.2 pg (27.0-31.0); MEAN PLATELET VOLUME 8.1 fl (7.2-11.7); MONO # 0.6 K/uL (0.0-0.8); MONO % 6.1 % (0.0-10.0); NRBC % 0.1 % (0.0-0.0); RED CELL DISTRIBUTION WIDTH 15.5 % (11.5-14.5); WHITE BLOOD COUNT 9.1 K/uL (4.8-10.8)
[2017-09-10 16:15] LABS: ALB/GLOB RATIO 1.2 (1.0-2.1); ALKALINE PHOSPHATASE 70 U/L (38-126); ALT/SGPT 59 U/L (9-52); AST/SGOT 44 U/L (14-36); BILIRUBIN,TOTAL 0.4 mg/dl (0.2-1.3); BLOOD UREA NITROGEN 6 mg/dl (7-17); CALCIUM 9.1 mg/dL (8.4-10.2); CARBON DIOXIDE 28 mmol/L (22-30); CHLORIDE 104 mmol/L (98-107); GFR AFRICAN-AMERICAN > 60; GLUCOSE,RANDOM 106 mg/dL (65-105); LIPASE 57 U/L (23-300); SODIUM 142 mmol/l (132-148)
[2017-09-10 16:17] LABS: POTASSIUM 3.7 MMOL/L (3.6-5.0)
[2017-09-10 18:54] VITALS: BP 125/82; PULSE 76; RESP 18; TEMP 98; O2SAT 100
--- NOTE | 2017-09-10 19:48 | ED PDOC ---
- Laboratory Results Result Diagrams: 09/10/17 15:50 09/10/17 15:50 - ECG O2 Sat by Pulse Oximetry: 100 Pulse Ox Interpretation: Normal Medical Decision Making Medical Decision Making: endorsed from Dr Hummel 5p pending crisis eval Per crisis, discharge for outpatient services. Patient informed of results, need for followup, has GI followup and Rx prior provided. Disposition - Clinical Impression Clinical Impression: Gastritis, Bipolar disorder, Abdominal pain - POA Present On Arrival: None - Disposition Disposition: Routine/Home Disposition Time: 19:48 Condition: STABLE Additional Instructions: Followup with psychiatrist/ counselor/ therapist as outpatient. Followup with Dr Jiang for results of endo biopsy. Instructions: Bipolar Disorder (ED), Abdominal Pain (ED)
== END 2017-09-10 21:00 | disposition home or self-care (01) ==
LOC: H.ER 14:17
DX: K29.70 Gastritis, unspecified, without bleeding (principal); F31.9 Bipolar disorder, unspecified; R10.9 Unspecified abdominal pain; Z87.442 Personal history of urinary calculi; R45.851 Suicidal ideations; F41.9 Anxiety disorder, unspecified; E05.90 Thyrotoxicosis, unspecified without thyrotoxic crisis or storm
CPT/HCPCS: 80053; 83690; 85025; 96374; 99283; C9113; J2405; J7040

== ENCOUNTER 2017-10-08 21:02 | Emergency (ER) | payer BC ==
[2017-10-08 21:02] VITALS: BMI 60.6
[2017-10-08 21:09] VITALS: BP 104/67; PULSE 73; RESP 16; TEMP 98.1; O2SAT 99
[2017-10-08] MEDS ORDERED: Sodium Chloride 0.9% 1,000 ML IV STA (22:40)
[2017-10-08 23:22] LABS: BASO # 0.1 K/uL (0.0-0.2); BASO % 0.5 % (0.0-2.0); EOS # 0.1 K/uL (0.0-0.7); EOS % 0.8 % (0.0-4.0); HEMATOCRIT 37.1 % (34.0-47.0); LYMPH # 2.3 K/uL (1.0-4.3); LYMPH % 23.2 % (20.0-40.0); MEAN CELL VOLUME 80.6 fl (81.0-99.0); MEAN CORPUSCULAR HEMOGLOBIN 25.5 pg (27.0-31.0); MEAN CORPUSCULAR HGB CONC 31.6 g/dL (33.0-37.0); MEAN PLATELET VOLUME 8.6 fl (7.2-11.7); MONO # 0.9 K/uL (0.0-0.8); MONO % 9.3 % (0.0-10.0); NEUT # 6.6 K/uL (1.8-7.0); NEUT % 66.2 % (50.0-75.0); RED CELL DISTRIBUTION WIDTH 16.2 % (11.5-14.5)
--- NOTE | 2017-10-08 23:48 | ED PDOC ---
HPI: Abdomen Time Seen by Provider: 10/08/17 21:10 Chief Complaint (Nursing): Abdominal Pain Chief Complaint (Provider): abdominal pain History Per: Patient History/Exam Limitations: no limitations Onset/Duration Of Symptoms: Days (1 but is chronic) Location Of Pain/Discomfort: RLQ Quality Of Discomfort: Aching Associated Symptoms: Nausea, Vomiting. denies: Fever, Chills Exacerbating Factors: None Alleviating Factors: None Last Bowel Movement: Today Additional History Per: Patient Additional Complaint(s): pt with history of chronic abdominal pain, cushings diseases, PCOS, fibromyalgia here with right lower quadrant abdominal pain for one day. pt is a pain management patient on chronic narcotics. Abnormal Vaginal Bleeding: No Past Medical History Vital Signs: Last Vital Signs Temp 98.1 F 10/08/17 21:05 Pulse 73 10/08/17 21:05 Resp 16 10/08/17 21:05 BP 104/67 10/08/17 21:05 Pulse Ox 99 10/10/17 03:39 - Medical History PMH: Anemia, Anxiety, Back Problems (herniated discs), Bipolar Disorder, Angy 's Syndrome, Fibromyalgia, Gastritis, Hyperthyroidism, Hypothyroidism, Kidney Stones, Migraine, Sleep Apnea Denies: Diabetes, Hepatitis, HIV, HTN, Chronic Kidney Disease, Seizures, Sexually Transmitted Disease - Surgical History Surgical History: Cholecystectomy, Endoscopy - Family History Family History: States: Unknown Family Hx (patient states she is adopted) - Social History Current smoker - smoking cessation education provided: No Alcohol: None Drugs: Denies - Immunization History Hx Tetanus Toxoid Vaccination: No Hx Influenza Vaccination: No Hx Pneumococcal Vaccination: No - Home Medications Home Medications: Ambulatory Orders Medication Instructions Recorded Alprazolam [Xanax] 0.5 mg PO DAILY PRN 07/18/16 Hydrocortisone [Cortef] 5 mg PO TID 07/18/16 Lamotrigine [Lamictal] 100 mg PO HS 07/18/16 Levothyroxine [Synthroid] 1 tab PO DAILY 07/18/16 Omeprazole 1 cap PO DAILY 07/18/16 Oxycodone HCl [Roxicodone] 5 mg PO Q4 PRN 07/18/16 metFORMIN [glucOPHAGE] 500 mg PO BID 07/18/16 tiZANidine [Zanaflex] 4 mg PO TID PRN 07/18/16 Nitrofurantoin Macrocrystals 100 mg PO BID #14 cap 10/10/16 [Macrobid] Naloxegol Oxalate [Movantik] 25 mg PO DAILY #30 tablet 06/15/17 Polyethylene Glycol 3350 [Miralax] 1 packet PO DAILY #30 packet 06/15/17 Docusate [Colace] 100 mg PO BID PRN #30 cap 08/22/17 Esomeprazole Magnesium [Nexium] 40 mg PO DAILY #10 capsule. 08/22/17 Nitrofurantoin Macrocrystals 100 mg PO BID #14 cap 08/22/17 [Macrobid] Ondansetron [Zofran] 4 mg PO Q8H #12 tab 08/23/17 Cephalexin [cephalexin] 500 mg PO BID #14 cap 09/05/17 Famotidine [Pepcid] 20 mg PO DAILY 09/06/17 Hydrocortisone [Cortef] 5 mg PO TID 09/06/17 Lamotrigine [Lamictal] 200 mg PO DAILY 09/06/17 Levothyroxine [Synthroid] 100 mcg PO DAILY 09/06/17 Meloxicam [Mobic] 15 mg PO DAILY PRN 09/06/17 Metoclopramide HCl [Reglan] 10 mg PO BID PRN #20 tab 09/06/17 Omeprazole [Omeprazole] 40 mg PO DAILY 09/06/17 Ondansetron [Zofran Tab] 4 mg PO BID PRN 09/06/17 cloNIDine [Catapres] 0.1 mg PO Q12H 09/06/17 oxyCODONE [oxyCODONE Immediate 10 mg PO TID 09/06/17 Release Tab] tiZANidine [Zanaflex] 2 mg PO Q12H PRN 09/06/17 Dicyclomine [Dicyclomine HCl] 10 mg PO TID PRN #10 cap 09/10/17 Metoclopramide HCl [Reglan] 5 mg PO TID PRN 5 Days tablet 09/24/17 Ondansetron [Zofran] 4 mg PO Q8H PRN #6 tab 09/24/17 - Allergies Allergies/Adverse Reactions: Allergies Allergy/AdvReac Type Severity Reaction Status Date / Time nut - unspecified Allergy RASH Verified 10/08/17 21:08 peanut Allergy ANAPHYLAXIS Verified 10/08/17 21:08 Physical Exam - Reviewed Nursing Documentation Reviewed: Yes - Physical Exam Appears: Positive for: Well, Non-toxic Head Exam: Positive for: ATRAUMATIC Skin: Positive for: Normal Color, Warm, Dry Cardiovascular/Chest: Positive for: Regular Rate, Rhythm Respiratory: Positive for: Normal Breath Sounds Gastrointestinal/Abdominal: Positive for: Bowel Sounds, Soft, Tenderness (rLQ). Negative for: Distended, Guarding, Rebound, Hernia Extremity: Positive for: Normal ROM Neurologic/Psych: Positive for: Alert, Oriented - Laboratory Results Result Diagrams: 10/08/17 23:19 10/09/17 00:17 - ECG O2 Sat by Pulse Oximetry: 99 Medical Decision Making Medical Decision Making: Time: 22:40 Impression: Abdominal Pain rule out appendicitis Plan: --CT ABD Pelvis PO & IV Contrast --Iohexol 50 ml PO --Toradol 30 mg IV --IV Fluids --Zofran 4 mg IV --Urine Culture -- -- Reassess: time: FINDINGS: CT Abdomen and Pelvis With Intravenous Contrast Lower thorax: No acute findings. ABDOMEN: Liver: Unremarkable. No mass. Gallbladder and bile ducts: Cholecystectomy. No ductal dilation. Pancreas: Unremarkable. No mass. No ductal dilation. Spleen: Unremarkable. No splenomegaly. Adrenals: Unremarkable. No mass. Kidneys and ureters: Nonobstructing stones right kidney. No stone in the left kidney or in either ureter and no hydronephrosis. Stomach and bowel: Unremarkable. No obstruction. No mucosal thickening. Appendix: Normal appendix. PELVIS: Bladder: Unremarkable. No mass. Reproductive: Unremarkable as visualized. ABDOMEN and PELVIS: Intraperitoneal space: Unremarkable. No free air. No significant fluid collection. Bones/joints: No acute fracture. No dislocation. Soft tissues: Unremarkable. Vasculature: Unremarkable. No abdominal aortic aneurysm. Lymph nodes: Unremarkable. No enlarged lymph nodes. IMPRESSION: Normal appendix. No acute findings. Thank you for allowing us to participate in the care of your patient. Dictated and Authenticated by: Rolando Qureshi MD 10/09/2017 3:52 AM Eastern Time ([place] & [place]) relayed results to patient throughout Er stay, pt in no distress sleeping in no distress. pt tolerated po and never vomitted in the ER. pt instructed to follow up as an outpatient. Scribe Attestation: Documented by Colin Raoms, acting as a scribe for Wilman Hummel MD. Provider Scribe Attestation: All medical record entries made by the Scribe were at my direction and personally dictated by me. I have reviewed the chart and agree that the record accurately reflects my personal performance of the history, physical exam, medical decision making, and the department course for this patient. I have also personally directed, reviewed, and agree with the discharge instructions and disposition. Disposition - Clinical Impression Clinical Impression: Chronic abdominal pain - Patient ED Disposition Is Patient to be Admitted: No Counseled Patient/Family Regarding: Studies Performed, Diagnosis, Need For Followup - Disposition Disposition: Routine/Home Disposition Time: 03:00 Condition: IMPROVED Additional Instructions: follow up with your primary doctor in 1-2 days return to the ED with any worsening or concerning symptoms Instructions: Abdominal Pain (ED) Forms: [employer] (S[place]i)
[2017-10-09] MEDS ORDERED: Iohexol 240 (50 ml) PO ONE (00:13)
[2017-10-09] MEDS ORDERED: Iohexol 240 (50 ml) ONE (00:26)
[2017-10-09 00:33] LABS: ALB/GLOB RATIO 1.2 (1.0-2.1); ALKALINE PHOSPHATASE 75 U/L (38-126); ALT/SGPT 89 U/L (9-52); AST/SGOT 59 U/L (14-36); BILIRUBIN,TOTAL 0.5 mg/dl (0.2-1.3); BLOOD UREA NITROGEN 12 mg/dl (7-17); CALCIUM 9.3 mg/dL (8.4-10.2); CARBON DIOXIDE 25 mmol/L (22-30); CHLORIDE 106 mmol/L (98-107); GFR AFRICAN-AMERICAN > 60; GLUCOSE,RANDOM 119 mg/dL (65-105); POTASSIUM 3.9 MMOL/L (3.6-5.0); SODIUM 140 mmol/l (132-148); TOTAL PROTEIN 7.4 G/DL (6.3-8.2)
[2017-10-09 00:34] LABS: RBC URINE 50 /hpf (0-3); URINE BILIRUBIN NEGATIVE (NEGATIVE); URINE BLOOD MODERATE (NEGATIVE); URINE COLOR YELLOW (YELLOW); URINE GLUCOSE (UA) NEG (Normal); URINE KETONE NEGATIVE (NEGATIVE); URINE LEUKOCYTE ESTERASE NEG Leu/uL (Negative); URINE PROTEIN NEGATIVE (NEGATIVE); URINE UROBILINOGEN 0.2-1.0 mg/dL (0.2-1.0); WBC URINE 2 /hpf (0-5)
[2017-10-09 00:35] LABS: URINE BACTERIA RARE (<OCC)
[2017-10-09] MEDS ORDERED: Sodium Chloride 0.9% 50 ML IV ONE (03:00)
[2017-10-09] MEDS ORDERED: Iohexol 300 100 ML IJ ONE (03:01)
--- NOTE | 2017-10-09 11:14 | CT ---
PROCEDURE: CT Abdomen and Pelvis with contrast HISTORY: abdominal pain rlq COMPARISON: 09/24/2017 TECHNIQUE: Contrast dose: 95 mL Omnipaque 300 Radiation dose: Total exam DLP = 1190.25 mGy-cm. This CT exam was performed using one or more of the following dose reduction techniques: Automated exposure control, adjustment of the mA and/or kV according to patient size, and/or use of iterative reconstruction technique. FINDINGS: LOWER THORAX: Linear pleural-based scar in left lower lobe unchanged from prior examination. LIVER: Unremarkable. No gross lesion or ductal dilatation. GALLBLADDER AND BILE DUCTS: Status post cholecystectomy PANCREAS: Unremarkable. No gross lesion or ductal dilatation. SPLEEN: Unremarkable. ADRENALS: Unremarkable. No mass. KIDNEYS AND URETERS: Unremarkable. No hydronephrosis. No solid mass. VASCULATURE: Unremarkable. No aortic aneurysm. BOWEL: Unremarkable. No obstruction. No gross mural thickening. APPENDIX: Normal appendix. PERITONEUM: Unremarkable. No free fluid. No free air. LYMPH NODES: Unremarkable. No enlarged lymph nodes. BLADDER: Unremarkable. REPRODUCTIVE: Unremarkable uterus BONES: No acute fracture. OTHER FINDINGS: None. IMPRESSION: No evidence of acute appendicitis. Status post cholecystectomy. Otherwise unremarkable examination. Preliminary interpretation of this examination was reported by [employer] at 3:52 a.m. on 10/09/2017. There is concurrence of this report with the preliminary interpretation.
== END 2017-10-09 06:30 | disposition home or self-care (01) ==
LOC: H.ER 21:02
DX: R10.31 Right lower quadrant pain (principal); R11.2 Nausea with vomiting, unspecified; M79.7 Fibromyalgia; E03.9 Hypothyroidism, unspecified; E05.90 Thyrotoxicosis, unspecified without thyrotoxic crisis or storm; F31.9 Bipolar disorder, unspecified; F41.9 Anxiety disorder, unspecified; G89.29 Other chronic pain; Z79.84 Long term (current) use of oral hypoglycemic drugs; Z90.49 Acquired absence of other specified parts of digestive tract
CPT/HCPCS: 74177; 80053; 81003; 85025; 87086; 96360; 99282; J1885; J2405; J7040; Q9966; Q9967

== ENCOUNTER 2017-11-04 02:39 | Inpatient (IN) | payer BC, MEDICAID ==
[2017-11-04 03:01] VITALS: BMI 52.9
--- NOTE | 2017-11-04 03:05 | ED PDOC ---
HPI: Abdomen Time Seen by Provider: 11/04/17 03:02 Chief Complaint (Nursing): Abdominal Pain Chief Complaint (Provider): Abdominal pain History Per: Patient Additional Complaint(s): Dominique Woodard is a 36yF with hx of Angy's syndrome on hydrocortisone, Pituitary adenoma s/p resection, Fibromyalgia on opioids, anxiety on clonidine, hypothyroidism, herniated disc, bipolar disorder on lamicatl presenting to ER with complaints of nausea, vomiting and abdominal pain. Pt was recently admitted in August with a similiar complaint. An EGD performed at that time revealed erythematous gastric mucosa, hiatial hernia, residual food, atrophic gastritis, dilated duodenal lacteals, and H. Pylori neg. Due to the assumption of gastroparesis and other previously mentioned findings, pt was discharge on PPI daily and reglan 5mg daily. Pt states that since discharge and with the alteration of her steroids, her symptoms were significant improved. She states that she started to experience acute on chronic abd pain in the epigastric and LLQ around 3 days ago. She rates the pain a 10 out of 10 abd pain. She notes that her symptoms worsen after meals and only alleviate with narcotic pain meds. She is chronically prescribed oxycodone by outpt pain management, but states that this time they were not effective in controlling her pain. She admits to taking her PPI daily in the AM and reglan daily in the AM. She also notes to have experienced nausea, vomiting, and diarrhea. Denies any fever, chills or diaphoresis. \Pt was seen at the GI office with Dr. Jiang with complaints of recurrent abdominal pain, nausea and vomiting requiring multiple ER visits. Also, pt reports a hx of chronic constipation for which she takes miralax and dulcolax, but states that her BM have been normal since discharge. ROS: A 12pt ROS was obtained and was negative except as above. PmHx: As stated in HPI PsHx: Cholecystectomy, pituitary adenoma resection SHx: Denies tobacco, alcohol, illicit drug use FHx: Pt is adopted, unknown biological family hx Endoscopy Hx: EGD 08/2017 erythematous gastric mucosa, hiatial hernia, residual food, atrophic gastritis, dilated duodenal lacteals, and H. Pylori neg; Colonoscopy 3-5 years ago and normal as per pt Past Medical History Reviewed: Historical Data, Nursing Documentation, Vital Signs Vital Signs: Last Vital Signs Temp 98.2 F 11/04/17 16:00 Pulse 65 11/04/17 16:00 Resp 18 11/04/17 16:00 BP 108/71 11/04/17 16:00 Pulse Ox 99 11/04/17 16:00 - Medical History PMH: Anemia, Anxiety, Back Problems (herniated discs), Bipolar Disorder, [place] 's Syndrome, Fibromyalgia, Gastritis, Hyperthyroidism, Hypothyroidism, Kidney Stones, Migraine, Sleep Apnea Denies: Diabetes, Hepatitis, HIV, HTN, Chronic Kidney Disease, Seizures, Sexually Transmitted Disease - Surgical History Surgical History: Cholecystectomy, Endoscopy - Family History Family History: States: Unknown Family Hx (patient states she is adopted) - Social History Current smoker - smoking cessation education provided: No Alcohol: None Drugs: Denies - Immunization History Hx Tetanus Toxoid Vaccination: No Hx Influenza Vaccination: No Hx Pneumococcal Vaccination: No - Home Medications Home Medications: Ambulatory Orders Medication Instructions Recorded Hydrocortisone [Cortef] 5 mg PO TID 07/18/16 Levothyroxine [Synthroid] 1 tab PO DAILY 07/18/16 Ondansetron [Zofran] 4 mg PO Q8H #12 tab 08/23/17 Lamotrigine [Lamictal] 200 mg PO DAILY 09/06/17 Metoclopramide HCl [Reglan] 10 mg PO BID PRN #20 tab 09/06/17 Omeprazole [Omeprazole] 40 mg PO DAILY 09/06/17 cloNIDine [Catapres] 0.1 mg PO Q12H 09/06/17 oxyCODONE [oxyCODONE Immediate 10 mg PO TID 09/06/17 Release Tab] tiZANidine [Zanaflex] 2 mg PO Q12H PRN 09/06/17 Ondansetron [Zofran] 4 mg PO Q8H PRN #6 tab 09/24/17 Alprazolam [Xanax] 0.25 mg PO DAILY 11/04/17 Hydrocortisone 10 mg PO BID 11/04/17 MedroxyPROGESTERone [Provera] 10 mg PO DAILY 11/04/17 Metformin HCl [Glucophage] 1,000 mg PO BID 11/04/17 - Allergies Allergies/Adverse Reactions: Allergies Allergy/AdvReac Type Severity Reaction Status Date / Time nut - unspecified Allergy RASH Verified 11/04/17 03:01 peanut Allergy ANAPHYLAXIS Verified 11/04/17 03:01 Review of Systems ROS Statement: Except As Marked, All Systems Reviewed And Found Negative Gastrointestinal: Positive for: Nausea, Vomiting, Abdominal Pain, Diarrhea Physical Exam - Reviewed Nursing Documentation Reviewed: Yes Vital Signs Reviewed: Yes - Physical Exam Appears: Positive for: Well, Non-toxic, No Acute Distress Head Exam: Positive for: ATRAUMATIC, NORMAL INSPECTION, NORMOCEPHALIC Skin: Positive for: Normal Color, Warm, DRY Eye Exam: Positive for: EOMI, Normal appearance, PERRL ENT: Positive for: Normal ENT Inspection Neck: Positive for: Normal, Painless ROM Cardiovascular/Chest: Positive for: Regular Rate, Rhythm Respiratory: Positive for: CNT, Normal Breath Sounds Gastrointestinal/Abdominal: Positive for: Normal Exam, Bowel Sounds, Soft Back: Positive for: Normal Inspection Extremity: Positive for: Normal ROM Neurologic/Psych: Positive for: Alert, Oriented - Laboratory Results Result Diagrams: 11/04/17 03:25 11/04/17 03:25 - ECG O2 Sat by Pulse Oximetry: 98 Medical Decision Making Medical Decision Making: IV access established and treatment initiated with IVF and Zofran 8 mg Pt on re-eval, asleep in NAD. When woken up by ticket writer and reports nausea continues. No episodes of vomiting or diarrhea while in ED Pt started on Reglan IV Labs resulted and reviewed with Pt who demonstrated full understanding. Given k.dur PO 0600- Pt asleep, woken again by ticket writer. Pt tearful and reports she still has some nausea however, its improved from initial onset. Pt offered phenergan and declined at this time, requesting to wait a little more for Reglan to take effect. Case endorsed to ED MD, Dr. Inman, pending re-eval. Disposition - Clinical Impression Clinical Impression: Vomiting, Abdominal pain - Patient ED Disposition Is Patient to be Admitted: Transfer of Care - Disposition Disposition: Transfer of Care Disposition Time: 21:19 Condition: STABLE - POA Present On Arrival: None
[2017-11-04] MEDS ORDERED: Sodium Chloride 0.9% 1,000 ML IV STA (03:14)
[2017-11-04 03:49] LABS: BASO % 0.4 % (0.0-2.0); EOS # 0.1 K/uL (0.0-0.7); EOS % 0.6 % (0.0-4.0); HEMATOCRIT 37.3 % (34.0-47.0); LYMPH # 1.8 K/uL (1.0-4.3); LYMPH % 17.2 % (20.0-40.0); MEAN CELL VOLUME 80.2 fl (81.0-99.0); MEAN CORPUSCULAR HEMOGLOBIN 25.9 pg (27.0-31.0); MEAN CORPUSCULAR HGB CONC 32.3 g/dL (33.0-37.0); MEAN PLATELET VOLUME 8.8 fl (7.2-11.7); MONO # 0.7 K/uL (0.0-0.8); MONO % 7.1 % (0.0-10.0); NEUT # 7.8 K/uL (1.8-7.0); NEUT % 74.7 % (50.0-75.0); NRBC % 0.1 % (0.0-0.0); RED CELL DISTRIBUTION WIDTH 17.1 % (11.5-14.5); WHITE BLOOD COUNT 10.5 K/uL (4.8-10.8)
[2017-11-04 04:01] LABS: ALB/GLOB RATIO 1.3 (1.0-2.1); ALKALINE PHOSPHATASE 62 U/L (38-126); ALT/SGPT 87 U/L (9-52); AMYLASE 47 U/L (30-110); AST/SGOT 47 U/L (14-36); BILIRUBIN,TOTAL 0.7 mg/dl (0.2-1.3); BLOOD UREA NITROGEN 11 mg/dl (7-17); CALCIUM 9.3 mg/dL (8.4-10.2); CARBON DIOXIDE 26 mmol/L (22-30); CHLORIDE 106 mmol/L (98-107); GFR AFRICAN-AMERICAN > 60; GLUCOSE,RANDOM 123 mg/dL (65-105); LIPASE 84 U/L (23-300); POTASSIUM 3.5 MMOL/L (3.6-5.0); SODIUM 143 mmol/l (132-148); TOTAL PROTEIN 7.1 G/DL (6.3-8.2)
[2017-11-04] MEDS ORDERED: Potassium Chloride 20 mEq ER Tab PO ONE ×2 (04:53→05:26)
[2017-11-04 09:51] LABS: RBC URINE 3 /hpf (0-3); URINE BACTERIA RARE (<OCC); URINE BILIRUBIN NEGATIVE (NEGATIVE); URINE BLOOD NEGATIVE (NEGATIVE); URINE COLOR YELLOW (YELLOW); URINE GLUCOSE (UA) NEG (Normal); URINE KETONE TRACE mg/dL (NEGATIVE); URINE LEUKOCYTE ESTERASE TRACE Leu/uL (Negative); URINE PROTEIN 30 mg/dL (NEGATIVE); URINE UROBILINOGEN 0.2-1.0 mg/dL (0.2-1.0); WBC URINE 11 /hpf (0-5)
--- NOTE | 2017-11-04 10:02 | CP.PCM.CON ---
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 Patient is noted to have baseline nausea but notes progressive vomiting and diarrhea leading to loss of appetite and a sixty pound weight loss in last 8 weeks validated on record view. Notes worsening bilious vomiting and watery diarrhea for the last three days with associated lightheadedness and dizziness. Recently completed antibiotic course 3-4 days ago for a UTI confirmed on 10/09 urine culture. Denies hematemesis, constipation, melena, hematochezia, sick contacts, or recent travel. 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 No prior colonoscopy. Family- unknown, adopted Social-denies tobacco,alcohol, illicit rug use Surgery- cholecystectomy, pituitary adenoma resection Colonoscopy 3-5 years ago and normal as per pt Review of Systems - Review of Systems Review of Systems: 12-point review of systems negative except for as above Past Patient History - Infectious Disease Hx of Infectious Diseases: None - Past Medical History & Family History Past Medical History?: Yes - Past Social History Smoking Status: Never Smoked - CARDIAC Hx Hypertension: No - PULMONARY Hx Sleep Apnea: Yes - NEUROLOGICAL Hx Migraine: Yes - HEENT Hx HEENT Problems: No - RENAL Hx Chronic Kidney Disease: Yes Hx Pyelonephritis: Yes - ENDOCRINE/METABOLIC Hx Hypothyroidism: Yes - HEMATOLOGICAL/ONCOLOGICAL Hx Anemia: Yes - INTEGUMENTARY Hx Dermatological Problems: No - MUSCULOSKELETAL/RHEUMATOLOGICAL Hx Back Pain: Yes - GASTROINTESTINAL Hx Gastrointestinal Disorders: Yes Hx Gall Bladder Disease: Yes Hx Gastritis: Yes Hx Vomiting: Yes - GENITOURINARY/GYNECOLOGICAL Hx Genitourinary Disorders: Yes Other/Comment: Polycystic ovarian syndrome - PSYCHIATRIC Hx Anxiety: Yes Hx Bipolar Disorder: Yes Hx Substance Use: No - SURGICAL HISTORY Hx Surgeries: Yes Hx Cholecystectomy: Yes Other/Comment: Hx removal of Pituitary tumor 2014 - ANESTHESIA Hx Anesthesia: Yes Hx Anesthesia Reactions: No Hx Malignant Hyperthermia: No Meds Allergies/Adverse Reactions: Allergies Allergy/AdvReac Type Severity Reaction Status Date / Time nut - unspecified Allergy RASH Verified 11/04/17 03:01 peanut Allergy ANAPHYLAXIS Verified 11/04/17 03:01 Physical Exam - Constitutional Appears: Non-toxic, No Acute Distress - Head Exam Head Exam: ATRAUMATIC, NORMOCEPHALIC - Eye Exam Eye Exam: EOMI, PERRL Pupil Exam: PERRL. absent: Miosis, Mydriatic - ENT Exam ENT Exam: Mucous Membranes Moist, Normal Oropharynx - Neck Exam Neck exam: Positive for: Full Rom, Normal Inspection - Respiratory Exam Respiratory Exam: Clear to Auscultation Bilateral. absent: Rales, Rhonchi, Wheezes - Cardiovascular Exam Cardiovascular Exam: RRR, +S1, +S2. absent: Gallop, Rubs - GI/Abdominal Exam GI & Abdominal Exam: Normal Bowel Sounds, Soft, Tenderness. absent: Distended, Firm, Guarding, Hernia, Organomegaly, Rebound, Rigid Additional comments: B/L LQ tenderness to palpation - Extremities Exam Extremities exam: Positive for: normal inspection. Negative for: pedal edema - Neurological Exam Neurological exam: Alert - Psychiatric Exam Psychiatric exam: Normal Affect, Normal Mood - Skin Skin Exam: Dry, Intact, Normal Color, Warm Results - Vital Signs Recent Vital Signs: Last Vital Signs Temp 98.0 F 11/04/17 03:01 Pulse 74 11/04/17 03:01 Resp 18 11/04/17 03:01 BP 124/88 11/04/17 03:01 Pulse Ox 98 11/04/17 03:04 - Labs Result Diagrams: 11/04/17 03:25 11/04/17 03:25 Labs: Laboratory Results - last 24 hr 11/04/17 11/04/17 03:25 03:25 WBC 10.5 RBC 4.65 Hgb 12.0 Hct 37.3 MCV 80.2 L MCH 25.9 L MCHC 32.3 L RDW 17.1 H Plt Count 270 MPV 8.8 Neut % (Auto) 74.7 Lymph % (Auto) 17.2 L Lyman % (Auto) 7.1 Eos % (Auto) 0.6 Baso % (Auto) 0.4 Neut # 7.8 H Lymph # 1.8 Lyman # 0.7 Eos # 0.1 Baso # 0.0 Sodium 143 Potassium 3.5 L Chloride 106 Carbon Dioxide 26 Anion Gap 15 BUN 11 Creatinine 0.9 Est GFR ( Amer) > 60 Est GFR (Non-Af Amer) > 60 Random Glucose 123 H Calcium 9.3 Total Bilirubin 0.7 AST 47 H D ALT 87 H Alkaline Phosphatase 62 Total Protein 7.1 Albumin 4.0 Globulin 3.1 Albumin/Globulin Ratio 1.3 Amylase 47 Lipase 84 Assessment & Plan - Assessment and Plan (Free Text) Assessment: 36 year old female with history of Hypothyroidism, Bipolar disorder, Fibromyalgia on opioids, Anxiety, 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 Active treatment of vomiting, diarrhea, and unintentional weight loss. 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 No prior colonoscopy. Plan: >ordered stool workup to rule out infectious diarrhea with recent antibiotics >ordered ACTH, AM cortisol, and TSH to assess endocrine function >ordered urine culture >autoimmune workup ordered >continue PPI, Reglan, zofran >recent CT A/P ansd CTA with no acute findings >supportive care: IVF resuscitation >previously schedule for colonoscopy Sunday, re-assess ability to tolerate bowel prep tomorrow <Louis Longoria - Last Filed: 11/04/17 11:16> Results - Vital Signs Recent Vital Signs: Last Vital Signs Temp 98.0 F 11/04/17 03:01 Pulse 74 11/04/17 03:01 Resp 18 11/04/17 03:01 BP 124/88 11/04/17 03:01 Pulse Ox 98 11/04/17 10:04 - Labs Result Diagrams: 11/04/17 03:25 11/04/17 03:25 Labs: Laboratory Results - last 24 hr 11/04/17 11/04/17 11/04/17 03:25 03:25 09:25 WBC 10.5 RBC 4.65 Hgb 12.0 Hct 37.3 MCV 80.2 L MCH 25.9 L MCHC 32.3 L RDW 17.1 H Plt Count 270 MPV 8.8 Neut % (Auto) 74.7 Lymph % (Auto) 17.2 L Lyman % (Auto) 7.1 Eos % (Auto) 0.6 Baso % (Auto) 0.4 Neut # 7.8 H Lymph # 1.8 Lyman # 0.7 Eos # 0.1 Baso # 0.0 Sodium 143 Potassium 3.5 L Chloride 106 Carbon Dioxide 26 Anion Gap 15 BUN 11 Creatinine 0.9 Est GFR ( Amer) > 60 Est GFR (Non-Af Amer) > 60 Random Glucose 123 H Calcium 9.3 Total Bilirubin 0.7 AST 47 H D ALT 87 H Alkaline Phosphatase 62 Total Protein 7.1 Albumin 4.0 Globulin 3.1 Albumin/Globulin Ratio 1.3 Amylase 47 Lipase 84 Urine Color Yellow Urine Clarity Slighty-cloudy Urine pH 5.0 Ur Specific [place] 1.027 Urine Protein 30 Urine Glucose (UA) Neg Urine Ketones Trace Urine Blood Negative Urine Nitrate Negative Urine Bilirubin Negative Urine Urobilinogen 0.2-1.0 Ur Leukocyte Esterase Trace Urine RBC (Auto) 3 Urine Microscopic WBC 11 H Ur Squamous Epith Cells 3 Urine Bacteria Rare Attending/Attestation - Attestation I have personally seen and examined this patient.: Yes I have fully participated in the care of the patient.: Yes I have reviewed all pertinent clinical information: Yes Notes (Text): 11/04/17 11:14 36 year old female with h/o Bipolar d/o, Hypothyroidism, Fibromyalgia, Cushings syndrome, pituitary adenoma s/p resection a/w intractable n/v. 1. Intractable nausea and vomiting2 2. Abdominal pain Plan: -recent CT unemarkable -was scheduled for colonoscopy sunday -supportive care with anti-emetics and hydration -continue ppi -consider prep/colonoscopy tomorrow depending on status
--- NOTE | 2017-11-04 10:04 | ED PDOC ---
- Laboratory Results Result Diagrams: 11/07/17 05:45 11/07/17 05:45 - ECG O2 Sat by Pulse Oximetry: 98 Medical Decision Making Medical Decision Making: pt was due for discharge but became anxious, upset, crying stating she's unable to tolerate PO despite max dose antiemetics at home. EDUCATIONAL AIDE database query reveal daily oxycodone and xanax, she was honest about use and has bottle in ED with pills, was not requesting additional pain medicine. Due for colonoscopy sunday Dr Jiang. GI contacted Dr Garzon, rec admit for further workup given failure outpt therapy , inability to tolerate PO. Dr Garzon examined patient in ED approx 915am. spinner continuous medicine Dr Mott to be contacted for admission Disposition Counseled Patient/Family Regarding: Studies Performed - Clinical Impression Clinical Impression: Vomiting, Abdominal pain - POA Present On Arrival: None - Disposition Disposition: Admitted as In-Patient Disposition Time: 08:45 Condition: STABLE
--- NOTE | 2017-11-04 15:52 | CP.PCM.CON ---
History of Present Illness - History of Present Illness History of Present Illness: Pain Management: Called to evaluate patient with PMH of disc disease followed by pain management at home. Patient admitted with abdomianl pain of a few month duration with negative CT scan and being evaluated by GI and will go for colonoscopy tomorrow. Pt was placed on home pain meds today and needs medication for breakthrough pain. Recommendations: 1. Continue home meds 2. Add Dilaudid 1mg IV q 4 hours for breakthrough pain. 3. Follow-up with GI workup Discussed above with Dr. Cates from Pain Management. Addison Denis Past Patient History - Infectious Disease Hx of Infectious Diseases: None - Past Medical History & Family History Past Medical History?: Yes - Past Social History Smoking Status: Never Smoked - CARDIAC Hx Cardiac Disorders: No - PULMONARY Hx Sleep Apnea: Yes (on CPAP at night) - NEUROLOGICAL Hx Migraine: Yes (from tumor) - HEENT Hx HEENT Problems: No - RENAL Hx Chronic Kidney Disease: Yes - ENDOCRINE/METABOLIC Hx Hypothyroidism: Yes Other/Comment: Cushings - HEMATOLOGICAL/ONCOLOGICAL Hx AIDS: No Hx Anemia: Yes Hx Human Immunodeficiency Virus (HIV): No - INTEGUMENTARY Hx Dermatological Problems: No - MUSCULOSKELETAL/RHEUMATOLOGICAL Hx Back Pain: Yes Hx Falls: No Hx Herniated Disk: Yes (2 in back and 1 in neck) Hx Unsteady Gait: Yes - GASTROINTESTINAL Hx Gastrointestinal Disorders: Yes Hx Gall Bladder Disease: Yes Hx Gastritis: Yes Hx Vomiting: Yes - GENITOURINARY/GYNECOLOGICAL Hx Genitourinary Disorders: Yes - PSYCHIATRIC Hx Anxiety: Yes Hx Bipolar Disorder: Yes Hx Depression: Yes Hx Substance Use: No - SURGICAL HISTORY Hx Surgeries: Yes Hx Cholecystectomy: Yes Other/Comment: Hx removal of Pituitary tumor 2013 - ANESTHESIA Hx Anesthesia: Yes Hx Anesthesia Reactions: No Hx Malignant Hyperthermia: No Meds Allergies/Adverse Reactions: Allergies Allergy/AdvReac Type Severity Reaction Status Date / Time nut - unspecified Allergy RASH Verified 11/04/17 03:01 peanut Allergy ANAPHYLAXIS Verified 11/04/17 03:01 Results - Vital Signs Recent Vital Signs: Last Vital Signs Temp 98 F 11/04/17 13:45 Pulse 64 11/04/17 13:45 Resp 24 11/04/17 13:45 BP 120/56 L 11/04/17 13:45 Pulse Ox 98 11/04/17 12:10 - Labs Result Diagrams: 11/04/17 03:25 11/04/17 03:25 Labs: Laboratory Results - last 24 hr 11/04/17 11/04/17 11/04/17 03:25 03:25 09:25 WBC 10.5 RBC 4.65 Hgb 12.0 Hct 37.3 MCV 80.2 L MCH 25.9 L MCHC 32.3 L RDW 17.1 H Plt Count 270 MPV 8.8 Neut % (Auto) 74.7 Lymph % (Auto) 17.2 L [place]bers[place] % (Auto) 7.1 Eos % (Auto) 0.6 Baso % (Auto) 0.4 Neut # 7.8 H Lymph # 1.8 [place] # 0.7 Eos # 0.1 Baso # 0.0 Sodium 143 Potassium 3.5 L Chloride 106 Carbon Dioxide 26 Anion Gap 15 BUN 11 Creatinine 0.9 Est GFR ( Amer) > 60 Est GFR (Non-Af Amer) > 60 POC Glucose (mg/dL) Random Glucose 123 H Calcium 9.3 Total Bilirubin 0.7 AST 47 H D ALT 87 H Alkaline Phosphatase 62 Total Protein 7.1 Albumin 4.0 Globulin 3.1 Albumin/Globulin Ratio 1.3 Amylase 47 Lipase 84 Urine Color Yellow Urine Clarity Slighty-cloudy Urine pH 5.0 Ur Specific [place] 1.027 Urine Protein 30 Urine Glucose (UA) Neg Urine Ketones Trace Urine Blood Negative Urine Nitrate Negative Urine Bilirubin Negative Urine Urobilinogen 0.2-1.0 Ur Leukocyte Esterase Trace Urine RBC (Auto) 3 Urine Microscopic WBC 11 H Ur Squamous Epith Cells 3 Urine Bacteria Rare Urine Opiates Screen Urine Methadone Screen Ur Barbiturates Screen Ur Phencyclidine Scrn Ur Amphetamines Screen U Benzodiazepines Scrn U Oth Cocaine Metabols U Cannabinoids Screen 11/04/17 11/04/17 09:52 11:00 WBC RBC Hgb Hct MCV MCH MCHC RDW Plt Count MPV Neut % (Auto) Lymph % (Auto) [place]bers[place] % (Auto) Eos % (Auto) Baso % (Auto) Neut # Lymph # [place] # Eos # Baso # Sodium Potassium Chloride Carbon Dioxide Anion Gap BUN Creatinine Est GFR ( Amer) Est GFR (Non-Af Amer) POC Glucose (mg/dL) 90 Random Glucose Calcium Total Bilirubin AST ALT Alkaline Phosphatase Total Protein Albumin Globulin Albumin/Globulin Ratio Amylase Lipase Urine Color Urine Clarity Urine pH Ur Specific [place] Urine Protein Urine Glucose (UA) Urine Ketones Urine Blood Urine Nitrate Urine Bilirubin Urine Urobilinogen Ur Leukocyte Esterase Urine RBC (Auto) Urine Microscopic WBC Ur Squamous Epith Cells Urine Bacteria Urine Opiates Screen Positive H Urine Methadone Screen Negative Ur Barbiturates Screen Negative Ur Phencyclidine Scrn Negative Ur Amphetamines Screen Negative U Benzodiazepines Scrn Negative U Oth Cocaine Metabols Negative U Cannabinoids Screen Negative
[2017-11-04] MEDS: oxyCODONE 10 mg Immediate Release Tab PO SCH (17:30)
[2017-11-04] MEDS ORDERED: Sodium Chloride 0.9% 1,000 ML IV SCH (18:30)
[2017-11-05] MEDS: oxyCODONE 10 mg Immediate Release Tab PO SCH ×3 (00:39→16:47)
[2017-11-05] MEDS: Levothyroxine 100 MCG TAB PO SCH (06:32)
[2017-11-05 07:01] LABS: BASO # 0.1 K/uL (0.0-0.2); BASO % 0.7 % (0.0-2.0); EOS # 0.1 K/uL (0.0-0.7); EOS % 0.4 % (0.0-4.0); HEMATOCRIT 37.1 % (34.0-47.0); LYMPH % 31.1 % (20.0-40.0); MEAN CELL VOLUME 80.7 fl (81.0-99.0); MEAN CORPUSCULAR HEMOGLOBIN 25.6 pg (27.0-31.0); MEAN CORPUSCULAR HGB CONC 31.8 g/dL (33.0-37.0); MEAN PLATELET VOLUME 8.5 fl (7.2-11.7); MONO # 0.9 K/uL (0.0-0.8); MONO % 6.9 % (0.0-10.0); NEUT # 7.9 K/uL (1.8-7.0); NEUT % 60.9 % (50.0-75.0); NRBC % 0.1 % (0.0-0.0); RED CELL DISTRIBUTION WIDTH 17.2 % (11.5-14.5)
--- NOTE | 2017-11-05 07:05 | CP.PCM.PN ---
<Kitty Garzon - Last Filed: 11/05/17 15:57> Subjective - Date & Time of Evaluation Date of Evaluation: 11/05/17 Time of Evaluation: 07:03 - Subjective Subjective: Gastroenterology Fellow/PGY5 Progress Note Patient notes slight improvement of mid to right lower abdominal pain, pain scale 5/10. Tolerated sips of water. Admits to dry heaves last night. Endorses 4 -5 episodes of diarrhea since yesterday evening. Objective - Vital Signs/Intake and Output Vital Signs (last 24 hours): Temp Pulse Resp BP Pulse Ox 98.0 F 62 18 123/80 99 11/05/17 01:00 11/05/17 01:00 11/05/17 01:00 11/05/17 01:00 11/05/17 01:00 - Medications Medications: Current Medications Alprazolam (Xanax) 0.25 mg PO DAILY [facility] Stop: 11/11/17 16:01 Last Admin: 11/04/17 21:04 Dose: 0.25 mg Bisacodyl (Dulcolax) 5 mg PO DAILY ONE Stop: 11/05/17 19:01 Clonidine HCl (Catapres) 0.1 mg PO BID@0800,2300 [facility] Last Admin: 11/04/17 23:20 Dose: 0.1 mg Hydrocortisone (Cortef) 5 mg PO DAILY@1600 [facility] Hydrocortisone (Cortef) 20 mg PO Q12@0800,2300 [facility] Last Admin: 11/04/17 23:16 Dose: 20 mg Hydromorphone HCl (Dilaudid) 1 mg IVP Q4 PRN PRN Reason: Pain, moderate (4-7) Last Admin: 11/05/17 06:48 Dose: 1 mg Sodium Chloride (Sodium Chloride 0.9%) 1,000 mls @ 50 mls/hr IV .Q20H [facility] Stop: 11/05/17 18:21 Last Admin: 11/04/17 19:30 Dose: Not Given Lamotrigine (Lamictal) 200 mg PO DAILY@2300 [facility] Last Admin: 11/04/17 23:00 Dose: 200 mg Levothyroxine Sodium (Synthroid) 100 mcg PO DAILY@0630 [facility] Last Admin: 11/05/17 06:32 Dose: 100 mcg Metformin HCl (Glucophage) 1,000 mg PO BIDWM [facility] Last Admin: 11/04/17 17:25 Dose: 1,000 mg Metoclopramide HCl (Reglan) 10 mg IVP Q6 PRN PRN Reason: Nausea/Vomiting Last Admin: 11/05/17 06:31 Dose: 10 mg Oxycodone HCl (Oxycodone Immediate Release Tab) 10 mg PO Q8 [facility] Last Admin: 11/05/17 00:39 Dose: 10 mg Polyethylene Glycol/Electrolytes (Golytely) 4,000 ml PO ONCE ONE Stop: 11/05/17 13:01 Tizanidine HCl (Zanaflex) 2 mg PO Q12H [facility] Last Admin: 11/05/17 04:31 Dose: Not Given - Labs Labs: 11/05/17 06:45 11/04/17 03:25 - Constitutional Appears: Non-toxic, No Acute Distress - Head Exam Head Exam: ATRAUMATIC, NORMOCEPHALIC - Eye Exam Eye Exam: EOMI, PERRL. absent: Scleral icterus Pupil Exam: PERRL. absent: Miosis, Mydriatic - ENT Exam ENT Exam: Mucous Membranes Moist, Normal Oropharynx - Neck Exam Neck Exam: Full ROM, Normal Inspection - Respiratory Exam Respiratory Exam: Clear to Ausculation Bilateral. absent: Rales, Rhonchi, Wheezes - Cardiovascular Exam Cardiovascular Exam: RRR, +S1, +S2. absent: Gallop, Rubs - GI/Abdominal Exam GI & Abdominal Exam: Soft, Tenderness, Normal Bowel Sounds. absent: Distended, Firm, Guarding, Rigid, Hyperactive Bowel Sounds, Organomegaly, Rebound Additional comments: mid to RLQ tenderness to palpation, negative McBurney's - Extremities Exam Extremities Exam: Normal Inspection. 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 Active treatment of vomiting, diarrhea , and unintentional weight loss. 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 No prior colonoscopy. Plan: >stool workup- Cdiff negative, pending culture/O&P >pending stool electrolytes >follow up ACTH, AM cortisol, and TSH >follow up repeat urine culture given recent antibiotic course for UTI >pending autoimmune workup >supportive care: PPI, Reglan, zofran, IVFs >recent CT A/P (10/08) and CTA (09/24) with no acute findings >clear liquid diet >ordered bowel prep, monitor tolerability >NPO after midnight for previously scheduled outpatient colonoscopy Sunday <Shamir Jiang MD - Last Filed: 11/05/17 17:34> Objective - Vital Signs/Intake and Output Vital Signs (last 24 hours): Temp Pulse Resp BP Pulse Ox 98.3 F 88 20 146/86 96 11/05/17 17:02 11/05/17 17:02 11/05/17 17:02 11/05/17 17:02 11/05/17 17:02 - Medications Medications: Current Medications Alprazolam (Xanax) 0.25 mg PO DAILY [facility] Stop: 11/11/17 16:01 Last Admin: 11/05/17 09:01 Dose: 0.25 mg Bisacodyl (Dulcolax) 5 mg PO DAILY ONE Stop: 11/05/17 19:01 Clonidine HCl (Catapres) 0.1 mg PO BID@0800,2300 [facility] Last Admin: 11/05/17 08:00 Dose: Not Given Hydrocortisone (Cortef) 5 mg PO DAILY@1600 [facility] Last Admin: 11/05/17 16:41 Dose: 5 mg Hydrocortisone (Cortef) 20 mg PO Q12@0800,2300 [facility] Last Admin: 11/05/17 08:54 Dose: 20 mg Hydromorphone HCl (Dilaudid) 1 mg IVP Q4 PRN PRN Reason: Pain, moderate (4-7) Last Admin: 11/05/17 11:11 Dose: 1 mg Sodium Chloride (Sodium Chloride 0.9%) 1,000 mls @ 50 mls/hr IV .Q20H [facility] Stop: 11/05/17 18:21 Last Admin: 11/04/17 19:30 Dose: Not Given Lamotrigine (Lamictal) 200 mg PO DAILY@2300 [facility] Last Admin: 11/04/17 23:00 Dose: 200 mg Levothyroxine Sodium (Synthroid) 100 mcg PO DAILY@0630 [facility] Last Admin: 11/05/17 06:32 Dose: 100 mcg Metformin HCl (Glucophage) 1,000 mg PO BIDWM [facility] Last Admin: 11/05/17 16:44 Dose: 1,000 mg Metoclopramide HCl (Reglan) 10 mg IVP Q6 PRN PRN Reason: Nausea/Vomiting Last Admin: 11/05/17 14:39 Dose: 10 mg Ondansetron HCl (Zofran Inj) 4 mg IVP Q6 PRN PRN Reason: Nausea/Vomiting Last Admin: 11/05/17 16:04 Dose: 4 mg Oxycodone HCl (Oxycodone Immediate Release Tab) 10 mg PO Q8 [facility] Last Admin: 11/05/17 16:47 Dose: 10 mg Pantoprazole Sodium (Protonix Ec Tab) 40 mg PO ACB [facility] Last Admin: 11/05/17 08:59 Dose: 40 mg Tizanidine HCl (Zanaflex) 2 mg PO Q12H [facility] Last Admin: 11/05/17 16:50 Dose: Not Given - Labs Labs: 11/05/17 06:45 11/05/17 06:45 PT 13.6 Seconds (9.8-13.1) H 11/05/17 06:45 INR 1.2 (0.9-1.2) 11/05/17 06:45 Attending/Attestation - Attestation I have personally seen and examined this patient.: Yes I have fully participated in the care of the patient.: Yes I have reviewed all pertinent clinical information, including history, physical exam and plan: Yes Notes (Text): 11/05/17 17:32 Patient seen at bedside earlier today. This is a 36 year old female with h/o Bipolar, Hypothyroidism, Fibromyalgia, Cushings syndrome, pituitary adenoma s/p resection a/w intractable n/v. s/p EGd which was unremarkable. CT imaging unremarkable. For colonoscopy in am. Prep today with clear liquid diet. Follow ACTH and cortisol levels. Continue reglan. NPo past midnight
[2017-11-05 07:17] LABS: ALB/GLOB RATIO 1.3 (1.0-2.1); ALKALINE PHOSPHATASE 70 U/L (38-126); ALT/SGPT 81 U/L (9-52); AST/SGOT 38 U/L (14-36); BILIRUBIN,TOTAL 0.6 mg/dl (0.2-1.3); BLOOD UREA NITROGEN 9 mg/dl (7-17); CARBON DIOXIDE 23 mmol/L (22-30); CHLORIDE 107 mmol/L (98-107); GFR AFRICAN-AMERICAN > 60; GLUCOSE,RANDOM 110 mg/dL (65-105); SODIUM 144 mmol/l (132-148); TOTAL PROTEIN 7.3 G/DL (6.3-8.2)
[2017-11-05] MEDS: Pantoprazole 40 mg EC Tab PO SCH (08:59)
[2017-11-05] MEDS ORDERED: Peg-Electrolyte Oral Soln 4L (Golytely) PO ONE (13:00)
[2017-11-05 13:46] LABS: IRON 20 ug/dL (37-170)
[2017-11-05 16:34] LABS: IMMUNOGLOBULIN A 308.3 mg/dL (70.0-400.0); IMMUNOGLOBULIN G 696.1 mg/dL (700.0-1600.0); IMMUNOGLOBULIN M 138.7 mg/dL (40.0-230.0)
[2017-11-05] MEDS ORDERED: Bisacodyl 5mg EC Tab PO ONE (19:00)
[2017-11-06] MEDS: oxyCODONE 10 mg Immediate Release Tab PO SCH ×3 (00:02→16:44)
[2017-11-06] MEDS: Levothyroxine 100 MCG TAB PO SCH (05:52)
[2017-11-06 06:07] LABS: HEMATOCRIT 35.2 % (34.0-47.0); MEAN CELL VOLUME 82.1 fl (81.0-99.0); MEAN CORPUSCULAR HEMOGLOBIN 25.5 pg (27.0-31.0)
[2017-11-06 06:24] LABS: ALB/GLOB RATIO 1.2 (1.0-2.1); ALKALINE PHOSPHATASE 52 U/L (38-126); ALT/SGPT 70 U/L (9-52); AST/SGOT 35 U/L (14-36); BILIRUBIN,TOTAL 0.5 mg/dl (0.2-1.3); BLOOD UREA NITROGEN 9 mg/dl (7-17); CALCIUM 8.9 mg/dL (8.4-10.2); CARBON DIOXIDE 26 mmol/L (22-30); CHLORIDE 106 mmol/L (98-107); GFR AFRICAN-AMERICAN > 60; GLUCOSE,RANDOM 107 mg/dL (65-105); POTASSIUM 3.8 MMOL/L (3.6-5.0); SODIUM 142 mmol/l (132-148); TOTAL PROTEIN 6.3 G/DL (6.3-8.2)
[2017-11-06] MEDS ORDERED: Etomidate 20 mg/10ml Inj IV ONE (07:27)
[2017-11-06] MEDS ORDERED: Succinylcholine 200 mg/10 ml Inj IV ONE (07:28)
[2017-11-06] MEDS ORDERED: Lactated Ringer's 1,000 ML IV ONE (07:31)
[2017-11-06] MEDS ORDERED: Propofol 10 mg/ml Inj (20 ML) ONE (07:36)
[2017-11-06] MEDS ORDERED: Lidocaine 2% MPF (5 ml) Inj ONE (07:36)
--- NOTE | 2017-11-06 08:41 | HP ---
CENTRAL NERVOUS SYSTEM: Essentially unchanged. DIAGNOSTIC DATA: Available diagnostic data reviewed. WBC of 13, hemoglobin 11.8, hematocrit 37.1, platelets 321. PT 13.6. Sodium 144, potassium 4.0, chloride 107, bicarb 23, BUN 18, creatinine 0.9. SMA-12 shows AST of 38, ALT of 81. Urinalysis is negative. Toxicology is positive for opiates, but the patient is on narcotics medication. Gastroenterology consult and followup noted and appreciated. Pain management evaluation noted and appreciated. ADMITTING IMPRESSION: Intractable vomiting, abdominal pain, fibromyalgia, hypothyroidism, Angy syndrome, morbid obesity. PLAN: As ordered. Von Mott MD
[2017-11-06] MEDS: Pantoprazole 40 mg EC Tab PO SCH (09:12)
--- NOTE | 2017-11-06 10:27 | CP.PCM.PN ---
Subjective - Date & Time of Evaluation Date of Evaluation: 11/06/17 Time of Evaluation: 08:00 - Subjective Subjective: Patient seen and examined with attending bedside. Patient went to colonoscopy procedure in the morning. She reports mild RLQ abd pain that has been getting better with pain medications. Denies vomiting, but persist mild nausea alleviated with zofran. pt willing to have breakfast now. she denies fever, n,v , cough, dysuria. Objective - Vital Signs/Intake and Output Vital Signs (last 24 hours): Temp Pulse Resp BP Pulse Ox 98.3 F 59 L 24 125/69 100 11/06/17 08:50 11/06/17 09:20 11/06/17 08:50 11/06/17 09:20 11/06/17 08:50 Intake and Output: 11/06/17 11/06/17 06:59 18:59 Intake Total 300 Balance 300 - Medications Medications: Current Medications Alprazolam (Xanax) 0.25 mg PO DAILY [facility] Stop: 11/11/17 16:01 Last Admin: 11/06/17 09:18 Dose: 0.25 mg Clonidine HCl (Catapres) 0.1 mg PO BID@0800,2300 [facility] Last Admin: 11/06/17 09:20 Dose: 0.1 mg Hydrocortisone (Cortef) 5 mg PO DAILY@1600 [facility] Last Admin: 11/05/17 16:41 Dose: 5 mg Hydrocortisone (Cortef) 20 mg PO Q12@0800,2300 [facility] Last Admin: 11/06/17 09:11 Dose: 20 mg Hydromorphone HCl (Dilaudid) 1 mg IVP Q4 PRN PRN Reason: Pain, moderate (4-7) Last Admin: 11/06/17 09:29 Dose: 1 mg Cefazolin Sodium/Dextrose (Ancef Iv 1 Gm Duplex) 1 gm in 50 mls @ 50 mls/hr IVPB Q12 [facility] PRN Reason: Protocol Lamotrigine (Lamictal) 200 mg PO DAILY@2300 [facility] Last Admin: 11/05/17 23:14 Dose: 200 mg Levothyroxine Sodium (Synthroid) 100 mcg PO DAILY@0630 [facility] Last Admin: 11/06/17 05:52 Dose: Not Given Metformin HCl (Glucophage) 1,000 mg PO BIDWM [facility] Last Admin: 11/06/17 09:13 Dose: 1,000 mg Metoclopramide HCl (Reglan) 10 mg IVP Q6 PRN PRN Reason: Nausea/Vomiting Last Admin: 11/06/17 02:55 Dose: 10 mg Ondansetron HCl (Zofran Inj) 8 mg IVP Q6 PRN PRN Reason: Nausea/Vomiting Last Admin: 11/06/17 09:23 Dose: 8 mg Oxycodone HCl (Oxycodone Immediate Release Tab) 10 mg PO Q8 [facility] Last Admin: 11/06/17 09:18 Dose: 10 mg Pantoprazole Sodium (Protonix Ec Tab) 40 mg PO ACB [facility] Last Admin: 11/06/17 09:12 Dose: 40 mg Tizanidine HCl (Zanaflex) 2 mg PO Q12H [facility] Last Admin: 11/06/17 04:30 Dose: Not Given - Labs Labs: 11/06/17 05:25 11/06/17 05:25 PT 13.6 Seconds (9.8-13.1) H 11/05/17 06:45 INR 1.2 (0.9-1.2) 11/05/17 06:45 - Constitutional Appears: Well, Non-toxic, No Acute Distress - Head Exam Head Exam: ATRAUMATIC, NORMOCEPHALIC - Eye Exam Eye Exam: Normal appearance - ENT Exam ENT Exam: Normal Exam - Neck Exam Neck Exam: Normal Inspection - Respiratory Exam Respiratory Exam: Clear to Ausculation Bilateral. absent: Rales, Rhonchi, Wheezes, Stridor - Cardiovascular Exam Cardiovascular Exam: REGULAR RHYTHM, +S1, +S2 - GI/Abdominal Exam GI & Abdominal Exam: Soft, Tenderness, Normal Bowel Sounds. absent: Rebound Additional comments: mild TD RLQ - Extremities Exam Extremities Exam: Normal Inspection. 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 -Prior EGD 08/2017 showed H pylori negative atrophic gastritis. -colonoscopy done today. 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
--- NOTE | 2017-11-06 11:21 | PQF GENQUE ---
This form is a permanent part of the medical record 11/06/17 Dr. Mott, Documentation of Morbid Obesity. EMR has the patient listed as 5' 11", weighing 380 pounds with a BMI of 53. Would you please clarify if you concur or not with the BMI of 53 or other BMI ( Please Specify ) Clarification of your documentation is requested to better reflect the severity of illness and intensity of treatment of your patient. Indicators present [] Specify: [] [] Specify: [] [] Specify: [] [] Specify: [] Location in the medical record that reflects the above clinical findings: [] Treatment Provided: [] PHYSICIAN'S RESPONSE Based on your medical judgment of the clinical indicators outlined above please clarify the following: [] Practitioner response [] If unable to determine, please check the box, sign and date. Present On Admission (POA) Indicator: [] Present at the time of admission [] Not present at the time of admission [] Clinically Undetermined In responding to this query, please exercise your independent professional judgment. The fact that a question is asked does not imply that any particular answer is desired or expected. Thank you for your clarification on this documentation. If you have any questions please call:ext [phone] * Thank you, Lizet Kelley RN [facility]
[2017-11-06] MEDS: ceFAZolin IV 1 gm in Dextrose 1 GM/50 ML BAG IVPB SCH ×2 (12:33→20:56)
[2017-11-07] MEDS: oxyCODONE 10 mg Immediate Release Tab PO SCH ×2 (00:14→08:11)
[2017-11-07 01:02] VITALS: TEMP 98.6
[2017-11-07] MEDS: Levothyroxine 100 MCG TAB PO SCH (06:11)
[2017-11-07 06:15] LABS: HEMATOCRIT 34.7 % (34.0-47.0); MEAN CELL VOLUME 81.4 fl (81.0-99.0); MEAN CORPUSCULAR HEMOGLOBIN 25.2 pg (27.0-31.0); WHITE BLOOD COUNT 8.5 K/uL (4.8-10.8)
[2017-11-07 06:35] LABS: ALB/GLOB RATIO 1.3 (1.0-2.1); ALKALINE PHOSPHATASE 54 U/L (38-126); ALT/SGPT 67 U/L (9-52); AST/SGOT 32 U/L (14-36); BILIRUBIN,TOTAL 0.4 mg/dl (0.2-1.3); BLOOD UREA NITROGEN 12 mg/dl (7-17); CALCIUM 8.9 mg/dL (8.4-10.2); CARBON DIOXIDE 29 mmol/L (22-30); CHLORIDE 104 mmol/L (98-107); GFR AFRICAN-AMERICAN > 60; GLUCOSE,RANDOM 122 mg/dL (65-105); POTASSIUM 3.8 MMOL/L (3.6-5.0); SODIUM 144 mmol/l (132-148); TOTAL PROTEIN 6.4 G/DL (6.3-8.2)
[2017-11-07] MEDS ORDERED: Enoxaparin 30 mg Syringe SC SCH (07:00)
[2017-11-07 07:43] VITALS: BP 101/61; PULSE 69; RESP 18
[2017-11-07] MEDS: Pantoprazole 40 mg EC Tab PO SCH (08:36)
[2017-11-07] MEDS: ceFAZolin IV 1 gm in Dextrose 1 GM/50 ML BAG IVPB SCH (08:39)
--- NOTE | 2017-11-07 09:22 | CP.PCM.PN ---
<Kitty Garzon - Last Filed: 11/07/17 09:19> Subjective - Date & Time of Evaluation Date of Evaluation: 11/07/17 Time of Evaluation: 09:20 - Subjective Subjective: Gastroenterology Fellow/PGY5 Progress Note Patient notes dry heaving through the night without vomiting. Tolerated regular diet. Notes episode of diarrhea overnight. A 12-point review of systems negative except for as above. Objective - Vital Signs/Intake and Output Vital Signs (last 24 hours): Temp Pulse Resp BP Pulse Ox 98.6 F 69 18 101/61 95 11/07/17 07:42 11/07/17 08:36 11/07/17 07:42 11/07/17 08:36 11/07/17 07:42 - Medications Medications: Current Medications Alprazolam (Xanax) 0.25 mg PO DAILY [facility] Stop: 11/11/17 16:01 Last Admin: 11/07/17 08:10 Dose: 0.25 mg Clonidine HCl (Catapres) 0.1 mg PO BID@0800,2300 [facility] Last Admin: 11/07/17 08:36 Dose: 0.1 mg Enoxaparin Sodium (Lovenox) 30 mg SC Q12 [facility] PRN Reason: Protocol Last Admin: 11/07/17 08:35 Dose: Not Given Hydrocortisone (Cortef) 5 mg PO DAILY@1600 [facility] Last Admin: 11/06/17 16:48 Dose: 5 mg Hydrocortisone (Cortef) 20 mg PO Q12@0800,2300 [facility] Last Admin: 11/07/17 08:36 Dose: 20 mg Hydromorphone HCl (Dilaudid) 1 mg IVP Q4 PRN PRN Reason: Pain, moderate (4-7) Last Admin: 11/07/17 08:11 Dose: 1 mg Cefazolin Sodium/Dextrose (Ancef Iv 1 Gm Duplex) 1 gm in 50 mls @ 50 mls/hr IVPB Q12 [facility] PRN Reason: Protocol Last Admin: 11/07/17 08:39 Dose: 50 mls/hr Lamotrigine (Lamictal) 200 mg PO DAILY@2300 [facility] Last Admin: 11/07/17 00:23 Dose: 200 mg Levothyroxine Sodium (Synthroid) 100 mcg PO DAILY@0630 [facility] Last Admin: 11/07/17 06:11 Dose: 100 mcg Metformin HCl (Glucophage) 1,000 mg PO BIDWM [facility] Last Admin: 11/07/17 08:36 Dose: 1,000 mg Metoclopramide HCl (Reglan) 10 mg IVP Q6 PRN PRN Reason: Nausea/Vomiting Last Admin: 11/07/17 03:29 Dose: 10 mg Ondansetron HCl (Zofran Inj) 8 mg IVP Q6 PRN PRN Reason: Nausea/Vomiting Last Admin: 11/07/17 08:31 Dose: 8 mg Oxycodone HCl (Oxycodone Immediate Release Tab) 10 mg PO Q8 [facility] Last Admin: 11/07/17 08:11 Dose: 10 mg Pantoprazole Sodium (Protonix Ec Tab) 40 mg PO ACB [facility] Last Admin: 11/07/17 08:36 Dose: 40 mg Tizanidine HCl (Zanaflex) 2 mg PO Q12H [facility] Last Admin: 11/07/17 04:44 Dose: Not Given - Labs Labs: 11/07/17 05:45 11/07/17 05:45 PT 13.6 Seconds (9.8-13.1) H 11/05/17 06:45 INR 1.2 (0.9-1.2) 11/05/17 06:45 - Constitutional Appears: Non-toxic, No Acute Distress - Head Exam Head Exam: ATRAUMATIC, NORMOCEPHALIC - Eye Exam Eye Exam: EOMI, PERRL. absent: Scleral icterus Pupil Exam: PERRL. absent: Miosis, Mydriatic - ENT Exam ENT Exam: Mucous Membranes Moist, Normal Oropharynx - Neck Exam Neck Exam: Full ROM, Normal Inspection - Respiratory Exam Respiratory Exam: Clear to Ausculation Bilateral. absent: Rales, Rhonchi, Wheezes - Cardiovascular Exam Cardiovascular Exam: RRR, +S1, +S2. absent: Gallop, Rubs - GI/Abdominal Exam GI & Abdominal Exam: Soft, Tenderness, Normal Bowel Sounds. 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 Recent CT A/P (10/08) and CTA (09/24) with no acute findings. 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 No prior colonoscopy. Plan: >POD1 (11/06) colonoscopy- showed congested/edematous mucosa of cecum,descending , and sigmoid colon -pathology pending >infectious diarrhea ruled out >normal ACTH, AM cortisol, and TSH >on antibiotics for UTI >negative autoimmune workup >tolerating regular diet >follow up with Dr. Jiang in office for colonoscopy results <Shamir Jiang MD - Last Filed: 11/07/17 11:21> Objective - Vital Signs/Intake and Output Vital Signs (last 24 hours): Temp Pulse Resp BP Pulse Ox 98.6 F 69 18 101/61 95 11/07/17 07:42 11/07/17 08:36 11/07/17 07:42 11/07/17 08:36 11/07/17 07:42 - Medications Medications: Current Medications Alprazolam (Xanax) 0.25 mg PO DAILY [facility] Stop: 11/11/17 16:01 Last Admin: 11/07/17 08:10 Dose: 0.25 mg Clonidine HCl (Catapres) 0.1 mg PO BID@0800,2300 [facility] Last Admin: 11/07/17 08:36 Dose: 0.1 mg Enoxaparin Sodium (Lovenox) 30 mg SC Q12 [facility] PRN Reason: Protocol Last Admin: 11/07/17 08:35 Dose: Not Given Hydrocortisone (Cortef) 5 mg PO DAILY@1600 [facility] Last Admin: 11/06/17 16:48 Dose: 5 mg Hydrocortisone (Cortef) 20 mg PO Q12@0800,2300 [facility] Last Admin: 11/07/17 08:36 Dose: 20 mg Hydromorphone HCl (Dilaudid) 1 mg IVP Q4 PRN PRN Reason: Pain, moderate (4-7) Last Admin: 11/07/17 08:11 Dose: 1 mg Cefazolin Sodium/Dextrose (Ancef Iv 1 Gm Duplex) 1 gm in 50 mls @ 50 mls/hr IVPB Q12 [facility] PRN Reason: Protocol Last Admin: 11/07/17 08:39 Dose: 50 mls/hr Lamotrigine (Lamictal) 200 mg PO DAILY@2300 [facility] Last Admin: 11/07/17 00:23 Dose: 200 mg Levothyroxine Sodium (Synthroid) 100 mcg PO DAILY@0630 [facility] Last Admin: 11/07/17 06:11 Dose: 100 mcg Metformin HCl (Glucophage) 1,000 mg PO BIDWM [facility] Last Admin: 11/07/17 08:36 Dose: 1,000 mg Metoclopramide HCl (Reglan) 10 mg IVP Q6 PRN PRN Reason: Nausea/Vomiting Last Admin: 11/07/17 03:29 Dose: 10 mg Ondansetron HCl (Zofran Inj) 8 mg IVP Q6 PRN PRN Reason: Nausea/Vomiting Last Admin: 11/07/17 08:31 Dose: 8 mg Oxycodone HCl (Oxycodone Immediate Release Tab) 10 mg PO Q8 [facility] Last Admin: 11/07/17 08:11 Dose: 10 mg Pantoprazole Sodium (Protonix Ec Tab) 40 mg PO ACB [facility] Last Admin: 11/07/17 08:36 Dose: 40 mg Tizanidine HCl (Zanaflex) 2 mg PO Q12H [facility] Last Admin: 11/07/17 04:44 Dose: Not Given - Labs Labs: 11/07/17 05:45 11/07/17 05:45 PT 13.6 Seconds (9.8-13.1) H 11/05/17 06:45 INR 1.2 (0.9-1.2) 11/05/17 06:45 Attending/Attestation - Attestation I have personally seen and examined this patient.: Yes I have fully participated in the care of the patient.: Yes I have reviewed all pertinent clinical information, including history, physical exam and plan: Yes Notes (Text): 11/07/17 11:18 Patient seen at bedside this am. This is a 36 year old female with history of Hypothyroidism, Bipolar disorder, Fibromyalgia on opioids, Anxiety, [place]'s syndrome on hydrocortisone, Pituitary adenoma s/p resection, and morbid obesity with use of CPAP presenting with nausea, vomiting and abdominal pain. Recent CT A/P (10/08) and CTA (09/24) with no acute findings. 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 s/p colonoscopy yesterday showing congested/edematous mucosa of cecum,descending, and sigmoid colon with random biopsy of Terminal ileum and colon pathology pending. Infectious work up of stool negative. E coli UTI on antibiotics. ACTH and cortisol levels normal. Tolerating regular diet. Follow up with me in office for colonoscopy results
--- NOTE | 2017-11-07 10:07 | CP.PCM.DIS ---
Provider - Provider Date of Admission: 11/04/17 10:03 Attending physician: Von Mott MD Time Spent in preparation of Discharge (in minutes): 35 Hospital Course - Lab Results Lab Results: Micro Results 11/05/17 03:00 Stool Ova and Parasite Concentrate Exam - Final 11/04/17 11:00 Urine,Clean Catch Urine Culture - Final Escherichia Coli Most Recent Lab Values WBC 8.5 K/uL (4.8-10.8) 11/07/17 05:45 RBC 4.26 Mil/uL (3.80-5.20) 11/07/17 05:45 Hgb 10.7 g/dL (12.0-16.0) L 11/07/17 05:45 Hct 34.7 % (34.0-47.0) 11/07/17 05:45 MCV 81.4 fl (81.0-99.0) 11/07/17 05:45 MCH 25.2 pg (27.0-31.0) L 11/07/17 05:45 MCHC 31.0 g/dL (33.0-37.0) L 11/07/17 05:45 RDW 17.0 % (11.5-14.5) H 11/07/17 05:45 Plt Count 225 K/uL (130-400) 11/07/17 05:45 MPV 8.5 fl (7.2-11.7) 11/05/17 06:45 Neut % (Auto) 60.9 % (50.0-75.0) 11/05/17 06:45 Lymph % (Auto) 31.1 % (20.0-40.0) 11/05/17 06:45 [place] % (Auto) 6.9 % (0.0-10.0) 11/05/17 06:45 Eos % (Auto) 0.4 % (0.0-4.0) 11/05/17 06:45 Baso % (Auto) 0.7 % (0.0-2.0) 11/05/17 06:45 Neut # 7.9 K/uL (1.8-7.0) H 11/05/17 06:45 Lymph # 4.0 K/uL (1.0-4.3) 11/05/17 06:45 [place] # 0.9 K/uL (0.0-0.8) H 11/05/17 06:45 Eos # 0.1 K/uL (0.0-0.7) 11/05/17 06:45 Baso # 0.1 K/uL (0.0-0.2) 11/05/17 06:45 PT 13.6 Seconds (9.8-13.1) H 11/05/17 06:45 INR 1.2 (0.9-1.2) 11/05/17 06:45 Sodium 144 mmol/l (132-148) 11/07/17 05:45 Potassium 3.8 MMOL/L (3.6-5.0) 11/07/17 05:45 Chloride 104 mmol/L (98-107) 11/07/17 05:45 Carbon Dioxide 29 mmol/L (22-30) 11/07/17 05:45 Anion Gap 15 (10-20) 11/07/17 05:45 BUN 12 mg/dl (7-17) 11/07/17 05:45 Creatinine 1.1 mg/dl (0.7-1.2) 11/07/17 05:45 Est GFR ( Amer) > 60 11/07/17 05:45 Est GFR (Non-Af Amer) 57 11/07/17 05:45 POC Glucose (mg/dL) 90 mg/dL (65-110) 11/04/17 09:52 Random Glucose 122 mg/dL (65-105) H 11/07/17 05:45 Calcium 8.9 mg/dL (8.4-10.2) 11/07/17 05:45 Iron 20 ug/dL (37-170) L 11/05/17 02:43 TIBC 305 ug/dL (250-450) 11/05/17 02:43 % Saturation 7 % (20-55) L 11/05/17 02:43 Total Bilirubin 0.4 mg/dl (0.2-1.3) 11/07/17 05:45 AST 32 U/L (14-36) 11/07/17 05:45 ALT 67 U/L (9-52) H 11/07/17 05:45 Alkaline Phosphatase 54 U/L (38-126) 11/07/17 05:45 Total Protein 6.4 G/DL (6.3-8.2) 11/07/17 05:45 Albumin 3.5 g/dL (3.5-5.0) 11/07/17 05:45 Globulin 2.8 gm/dL (2.2-3.9) 11/07/17 05:45 Albumin/Globulin Ratio 1.3 (1.0-2.1) 11/07/17 05:45 Amylase 47 U/L (30-110) 11/04/17 03:25 Lipase 84 U/L (23-300) 11/04/17 03:25 TSH 3rd Generation 1.14 mIU/ML (0.46-4.68) 11/04/17 13:10 Cortisol AM Sample 11.7 ug/dL (4.46-22.7) 11/05/17 13:10 ACTH 13 pg/mL (6-50) 11/05/17 13:10 Urine Color Yellow (YELLOW) 11/04/17 09:25 Urine Clarity Slighty-cloudy (Clear) 11/04/17 09:25 Urine pH 5.0 (5.0-8.0) 11/04/17 09:25 Ur Specific [place] 1.027 (1.003-1.030) 11/04/17 09:25 Urine Protein 30 mg/dL (NEGATIVE) 11/04/17 09:25 Urine Glucose (UA) Neg mg/dL (Normal) 11/04/17 09:25 Urine Ketones Trace mg/dL (NEGATIVE) 11/04/17 09:25 Urine Blood Negative (NEGATIVE) 11/04/17 09:25 Urine Nitrate Negative (NEGATIVE) 11/04/17 09:25 Urine Bilirubin Negative (NEGATIVE) 11/04/17 09:25 Urine Urobilinogen 0.2-1.0 mg/dL (0.2-1.0) 11/04/17 09:25 Ur Leukocyte Esterase Trace Arturo/uL (Negative) 11/04/17 09:25 Urine RBC (Auto) 3 /hpf (0-3) 11/04/17 09:25 Urine Microscopic WBC 11 /hpf (0-5) H 11/04/17 09:25 Ur Squamous Epith Cells 3 /hpf (0-5) 11/04/17 09:25 Urine Bacteria Rare (<OCC) 11/04/17 09:25 Stool Leukocytes, Qual Negative (NEGATIVE) 11/05/17 03:00 Urine Opiates Screen Positive (NEGATIVE) H 11/04/17 11:00 Urine Methadone Screen Negative (NEGATIVE) 11/04/17 11:00 Ur Barbiturates Screen Negative (NEGATIVE) 11/04/17 11:00 Ur Phencyclidine Scrn Negative (NEGATIVE) 11/04/17 11:00 Ur Amphetamines Screen Negative (NEGATIVE) 11/04/17 11:00 U Benzodiazepines Scrn Negative (NEGATIVE) 11/04/17 11:00 U Oth Cocaine Metabols Negative (NEGATIVE) 11/04/17 11:00 U Cannabinoids Screen Negative (NEGATIVE) 11/04/17 11:00 IgG 696.1 mg/dL (700.0-1600.0) L 11/05/17 13:10 IgA 308.3 mg/dL (70.0-400.0) 11/05/17 13:10 IgM 138.7 mg/dL (40.0-230.0) 11/05/17 13:10 PATRIA Screen Negative (Negative) 11/05/17 13:15 Anti-Mitochondrial Ab Negative (Negative) 11/05/17 13:10 Anti-Smooth Muscle Ab Negative (Negative) 11/05/17 13:10 C. difficile Ag & Toxin Negative (NEGATIVE) 11/05/17 03:00 Hepatitis A IgM Ab Negative (NEGATIVE) 11/05/17 13:10 Hep Bs Antigen Negative (NEGATIVE) 11/05/17 13:10 Hep B Core IgM Ab Negative (NEGATIVE) 11/05/17 13:10 Hepatitis C Antibody Negative (NEGATIVE) 11/05/17 13:10 - Hospital Course Hospital Course: 36 yo,f, PMhx/o Hypothyroidism, Bipolar disorder, Fibromyalgia on opioids, Anxiety, [place]'s syndrome on hydrocortisone, Pituitary adenoma s/p resection, and morbid obesity with use of CPAP admitted for intractable vomiting and abodminal pain.Recent CT A/P (10/08) and CTA (09/24) with no acute findings. 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 s/p colonoscopy yesterday showing congested/edematous mucosa of cecum,descending, and sigmoid colon with random biopsy of Terminal ileum and colon pathology pending. Infectious work up of stool negative. E coli UTI on antibiotics. ACTH and cortisol levels normal. Tolerating regular diet. Pt evaluated by GI, cleared to be discharged and f/u Dr Jiang Office. UTI treated, discharged with keflex x 6 days Diagnosis 1) Abdominal pain -resolved GI consult appreciated. -Prior EGD 08/2017 showed H pylori negative atrophic gastritis. -c/w dilaudid, oxycodone 2)Vomiting -resolved -Zofran PRN 3) [place] syndrome -on steroids 4) Pituitary adenoma -s/p resection 5) Morbid obesity -BMI 53 6) UTI urine cx E coli c/w keflex outpatient x 6 days 7) Hypothyrodism -c/w levothyroxin Discharge Exam - Head Exam Head Exam: ATRAUMATIC, NORMOCEPHALIC - Eye Exam Eye Exam: Normal appearance - Respiratory Exam Respiratory Exam: Clear to PA & Lateral. absent: Wheezes - Cardiovascular Exam Cardiovascular Exam: REGULAR RHYTHM, +S1, +S2 - GI/Abdominal Exam GI & Abdominal Exam: Normal Bowel Sounds, Soft. absent: Rebound, Tenderness - Extremities Exam Extremities exam: normal inspection - Back Exam Back exam: NORMAL INSPECTION. absent: CVA tenderness (L), CVA tenderness (R) - Neurological Exam Neurological exam: Alert, Normal Gait, Oriented x3 - Psychiatric Exam Psychiatric exam: Normal Affect, Normal Mood - Skin Skin Exam: Dry, Intact Discharge Plan - Discharge Medications Prescriptions: Cephalexin [Keflex] 500 mg PO BID #12 capsule Lactobacillus Acidophilus [Bacid Acidophilus] 1 cap PO BID #30 cap - Follow Up Plan Condition: STABLE Disposition: HOME/ ROUTINE Instructions: Colonoscopy (DC), Acute Nausea and Vomiting (ED), Acute Abdominal Pain (DC) Additional Instructions: Complete all antibiotics. Follow up with PMD in [address] Jiang in 2 weeks. Referrals: Von Mott MD [Staff Provider] - Shamir Jinag MD, MD [Medical Doctor] -
[2017-11-07 15:06] VITALS: O2SAT 98
== END 2017-11-07 11:45 | disposition home or self-care (01) | DRG 392 ==
LOC: H.ER 02:39 → H.ERHOLD 10:03 → H.MEDSURG1 13:20
PROVIDERS: ADMIT Internal Medicine; ATTEND Internal Medicine
PROC: 0DBE8ZX Excision of Large Intestine, Via Natural or Artificial Opening Endoscopic, Diagnostic (ICD-10-PCS; 2017-11-06)
PROC: 0DBL8ZX Excision of Transverse Colon, Via Natural or Artificial Opening Endoscopic, Diagnostic (ICD-10-PCS; 2017-11-06)
PROC: 0DBB8ZX Excision of Ileum, Via Natural or Artificial Opening Endoscopic, Diagnostic (ICD-10-PCS; principal; 2017-11-06 12:15)
DX: R10.13 Epigastric pain (principal); E24.9 Cushing's syndrome, unspecified; Z68.43 Body mass index [BMI] 50.0-59.9, adult; N39.0 Urinary tract infection, site not specified; E03.9 Hypothyroidism, unspecified; F31.9 Bipolar disorder, unspecified; M79.7 Fibromyalgia; Z91.010 Allergy to peanuts; E66.01 Morbid (severe) obesity due to excess calories; B96.20 Unspecified Escherichia coli [E. coli] as the cause of diseases classified elsewhere; K29.40 Chronic atrophic gastritis without bleeding; F41.9 Anxiety disorder, unspecified; R10.32 Left lower quadrant pain; R19.7 Diarrhea, unspecified; K63.5 Polyp of colon; K64.4 Residual hemorrhoidal skin tags